=== PATIENT | male | born 1960 | race Caucasian/White ===

== ENCOUNTER 2019-10-12 05:44 | Inpatient (IN) | payer MEDICARE, OTHER ==
[2019-10-03 11:50] LABS: PRE OP PROTIME 10.5 SECONDS (9.0-12.0)
[2019-10-03 12:53] LABS: ALBUMIN 3.9 G/DL (3.4-5.0); ALBUMIN/GLOBULIN RATIO 1.1 (1.1-1.5); ALKALINE PHOSPHATASE 105 IU/L (46-116); BLOOD UREA NITROGEN 14 MG/DL (7-18); BUN/CREATININE RATIO 14.6 (5.4-32.0); CALCIUM 9.9 MG/DL (8.5-10.1); CHLORIDE 107 MMOL/L (99-107); CREATININE 0.96 MG/DL (0.60-1.10); PRE OP ALT 52 U/L (30-65); PRE OP ANION GAP 7 (8-16); PRE OP AST 24 U/L (10-37); PRE OP BILIRUB, TOTAL 0.6 MG/DL (0.0-1.0); PRE OP GLUCOSE 104 MG/DL (70-104); PRE OP POTASSIUM 4.1 MMOL/L (3.4-5.1); PRE OP SODIUM 139 MMOL/L (135-145); TOTAL CARBON DIOXIDE 25.2 MMOL/L (24-32); TOTAL PROTEIN 7.5 G/DL (6.4-8.2); eGFR 80 ML/MIN
[~2019-10-12] VITALS: Ht 180.3 cm; Wt 110.2 kg
[2019-10-12] VITALS (15 sets, daily range): BP systolic 85–137; BP diastolic 50–87
[~2019-10-12 05:44] MED LIST: ALPR0.5T8 PO; PANT-47 PO; SILD100T PO; ZOLP10TA5 PO; cefazolin/dext.iso 2gm/100ml 100 ML IV ONE; famotidine 20mg tablet PO ONE; ringers solution, lacted 1,000 ML IV SCH; scopolamine 1.5mg patch.TD72 TD ONE; tranexamic acid inj. 1,130 MG in normal saline 100ml IV soln 100 ML IV ONE; vancomycin inj 1,500 MG in normal saline 300ml IV soln IV ONE
[2019-10-12] MEDS ORDERED: ketorolac trometh. 30mg/ml inj. ONE (06:45)
[2019-10-12] MEDS ORDERED: ROPIVAcaine 0.5% (5mg/ml) 30ml vial ONE ×2 (06:45→08:28)
[2019-10-12 06:46] LABS: BASOPHILS # (AUTO) 0.1 X10'3 (0-0.2); BASOPHILS % (AUTO) 1.8 % (0-1); EOSINOPHILS # (AUTO) 0.2 X10'3 (0-0.9); EOSINOPHILS % (AUTO) 3.7 % (0-6); HEMATOCRIT 45.3 % (42.0-52.0); HEMOGLOBIN 15.3 g/dl (14.0-17.9); LYMPHOCYTES # (AUTO) 2.3 X10'3 (1.1-4.8); LYMPHOCYTES % (AUTO) 36.6 % (21-51); MEAN CORPUSCULAR HEMOGLOBIN 33.2 PG (27.0-31.0); MEAN CORPUSCULAR HGB CONC 33.9 g/dL (33.0-36.5); MEAN CORPUSCULAR VOLUME 98.1 FL (78-98); MEAN PLATELET VOLUME 8.1 FL (7.4-10.4); MONOCYTES # (AUTO) 0.7 X10'3 (0-0.9); MONOCYTES % (AUTO) 10.9 % (2-12); PLATELET COUNT 253 X10'3 (140-440); RED BLOOD COUNT 4.62 X10'6 (4.70-6.10); RED CELL DISTRIBUTION WIDTH 13.7 % (11.5-14.5); WHITE BLOOD COUNT 6.4 X10'3 (4.5-11.0)
[2019-10-12] MEDS ORDERED: ringers solution, lacted 1,000 ML IV SCH (08:17)
[2019-10-12] MEDS ORDERED: ondansetron/PF 4mg/2ml inj IV PRN ×3 (08:20→11:35)
[2019-10-12] MEDS ORDERED: morphine 4 MG/ML inj SYRINge IV PRN ×2 (08:20)
[2019-10-12] MEDS ORDERED: proMETHazine 25mg rectal suppository RC PRN ×2 (08:20)
[2019-10-12] MEDS ORDERED: hydrALAZINE 20mg/ml inj. IV PRN (08:20)
[2019-10-12] MEDS ORDERED: labetalol 20mg/4ml (5mg/ml) syringe IV PRN (08:20)
[2019-10-12] MEDS ORDERED: ROPIVAcaine 0.2% (10 MG/5 ML) BOLUS INJECTION INTERSCALE PRN ×2 (08:20→12:05)
[2019-10-12] MEDS ORDERED: proCHLORperazine 10 MG/2 ml inj IV PRN (08:20)
[2019-10-12] MEDS ORDERED: fentaNYL/PF 50MCG/1 ML 2ML syringe IV PRN ×2 (08:20)
[2019-10-12] MEDS ORDERED: fentaNYL/PF 50MCG/1 ML 2ML syringe ONE (08:24)
[2019-10-12] MEDS ORDERED: midazolam 2 mg/2 ml injection ONE (08:25)
[2019-10-12] MEDS ORDERED: dexamethasone sod phosphate 4mg/ml inj. ONE (08:28)
[2019-10-12] MEDS ORDERED: LIDOcaine 2% (20mg/ml) 5ml vial ONE (08:28)
[2019-10-12] MEDS ORDERED: propofol inj 20 ML IV ONE (08:28)
[2019-10-12] MEDS ORDERED: ondansetron/PF 4mg/2ml inj ONE (08:28)
[2019-10-12] MEDS ORDERED: acetaminophen 1,000mg/100ml IV 100 ML IV ONE (08:28)
[2019-10-12] MEDS ORDERED: sevoflurane 250ml liquid IH ONE (09:00)
[2019-10-12] MEDS ORDERED: succinylcholine 20mg/ml inj IV ONE (09:50)
[2019-10-12] MEDS ORDERED: tranexamic acid inj. 1,130 MG in normal saline 100ml IV soln 100 ML IV ONE ×2 (10:00→15:35)
[2019-10-12] MEDS ORDERED: ePHEDrine 50MG/ML INJ. ONE (10:37)
[2019-10-12] MEDS ORDERED: atropine 0.4 mg/ml 20ml vial ONE (10:39)
[2019-10-12] MEDS ORDERED: magnesium hydroxide 30ml (MOM) UD suspension PO PRN (11:35)
[2019-10-12] MEDS ORDERED: zolpidem 5mg tablet PO SCH (11:35)
[2019-10-12] MEDS ORDERED: non-formulary drug (Sildenafil Citrate* (Viagra*) 1 TAB) PO PRN (11:35)
[2019-10-12] MEDS ORDERED: HYDROmorphone inj. 0.5 MG/0.5 ML DISP.SYRIN IV PRN (11:35)
[2019-10-12] MEDS ORDERED: acetaminophen 325mg tablet PO PRN (11:35)
[2019-10-12] MEDS ORDERED: bisacodyl 10mg suppository rectal RC PRN (11:35)
[2019-10-12] MEDS ORDERED: oxyCODONE IR 5mg (immed. release) tablet PO PRN (11:35)
[2019-10-12] MEDS ORDERED: diphenhydrAMINE 25mg capsule PO PRN ×2 (11:35)
[2019-10-12] MEDS ORDERED: HYDROmorphone 1 mg/ml syringe IV PRN (11:35)
--- NOTE | 2019-10-12 11:35 | NUR ---
Received from OR via ORTHO BED WITH [facility] , accompanied by Anesthesiologist JOSEFA and report given by Anesthesiolgist. PATIENT WITH SLING TO RIGHT UE WITH POWDER PACK PRESENT. NO DRAINAGE PRESENT TO RIGHT UE DRESSING , NERVE BLOCK CATHETER PRESENT TO LEFT OF NECK. + RADIAL PULSE PRESENT AND SLING IS ON, PLACED PILLOW UNDER ELBOW TO PROTECT ULNAR NERVE. PATIENT WITH SCDS DONNED AND VSS AT THIS TIME. GLASSES PLACED ON TRAPEZE.VSS Addendum: 10/12/19 at 1156 by Last Johnson RN, RN Amended: Links added.
[2019-10-12] MEDS ORDERED: ROPIVAcaine 0.2%/PF PUMP/bolus 550 ML INTERSCALE SCH (12:01)
--- NOTE | 2019-10-12 12:25 | NUR ---
ALL CRITERIA FOR TRANSFER TO THE FLOOR HAS BEEN ACHIEVED. VSS. BED LOW, CALL LIGHT AND VS. SET IN PLACE. RN PRESENT TO ACCEPT CARE. PATIENT RESTING COMFORTABLY IN BED. BELONGINGS SENT WITH PATIENT. DRESSINGS CDI. REINA DELAROSA AND PATIENT PRESENT. 2 BAGS OF BELONGINGS SENT AND A PAIR OF GLASSES. Addendum: 10/12/19 at 1237 by Last Aquino - REINA HUANG Amended: Links added.
[2019-10-12] MEDS ORDERED: ALPRAZolam 0.5mg tablet PO PRN ×2 (13:05→20:15)
[2019-10-12] MEDS: acetaminophen 325mg tablet PO SCH ×2 (15:59→20:00)
[2019-10-12] MEDS: ceFAZolin 1GM/D5W- ADD-VANTAGE 50 ML IV SCH ×2 (16:00→23:42)
[2019-10-12] MEDS: potassium cl 20mEq in 1/2 NS 1,000 ML IV SCH ×3 (16:01→23:42)
[2019-10-12] MEDS ORDERED: vancomycin/NS 1 GM ADD-VANTAGE 250 ML IV SCH (20:00)
[2019-10-12] MEDS ORDERED: pantoprazole 40mg Tablet.DR PO SCH (21:00)
[2019-10-12] MEDS ORDERED: sennosides 8.6mg tablet PO SCH (21:00)
[2019-10-13 02:00] VITALS: BP_SYST 130; BP_SYST 92; BP_DIAS 53; BP_DIAS 76
[2019-10-13] MEDS: acetaminophen 325mg tablet PO SCH ×2 (02:00→07:57)
[2019-10-13 06:00] VITALS: BP 106/47
[2019-10-13 06:30] LABS: ANION GAP 8 (8-16); CHLORIDE 106 MMOL/L (99-107); POTASSIUM 4.2 MMOL/L (3.5-5.1); SODIUM 139 MMOL/L (135-145); TOTAL CARBON DIOXIDE 24.9 MMOL/L (24-32)
[2019-10-13 06:49] LABS: BASOPHILS % (AUTO) 0.3 % (0-1); EOSINOPHILS % (AUTO) 0.1 % (0-6); HEMATOCRIT 39.3 % (42.0-52.0); HEMOGLOBIN 13.5 g/dl (14.0-17.9); LYMPHOCYTES # (AUTO) 1.4 X10'3 (1.1-4.8); LYMPHOCYTES % (AUTO) 9.5 % (21-51); MEAN CORPUSCULAR HEMOGLOBIN 33.5 PG (27.0-31.0); MEAN CORPUSCULAR HGB CONC 34.4 g/dL (33.0-36.5); MEAN CORPUSCULAR VOLUME 97.5 FL (78-98); MEAN PLATELET VOLUME 8.4 FL (7.4-10.4); MONOCYTES # (AUTO) 0.7 X10'3 (0-0.9); MONOCYTES % (AUTO) 4.9 % (2-12); NEUTROPHILS # (AUTO) 12.6 X10'3 (1.8-7.7); NEUTROPHILS % (AUTO) 85.2 % (42-75); PLATELET COUNT 254 X10'3 (140-440); RED BLOOD COUNT 4.04 X10'6 (4.70-6.10); RED CELL DISTRIBUTION WIDTH 13.7 % (11.5-14.5); WHITE BLOOD COUNT 14.7 X10'3 (4.5-11.0)
[2019-10-13] MEDS ORDERED: mag hydrox/Alum hydrox/simeth 30ml oral suspension PO PRN (07:20)
[2019-10-13] MEDS ORDERED: aspirin 325mg tablet PO SCH (08:30)
[2019-10-13 09:52] VITALS: BP 112/52
[2019-10-13] MEDS: oxyCODONE IR 5mg (immed. release) tablet PO PRN ×2 (10:22→12:09)
[2019-10-13] MEDS: potassium cl 20mEq in 1/2 NS 1,000 ML IV SCH (11:34)
[2019-10-14] MEDS ORDERED: acetaminophen 325mg tablet PO PRN (11:35)
== END 2019-10-13 12:30 | disposition home or self-care (01) | DRG 483 ==
LOC: PAS IN 05:44 → EDSTATUS 09:45 → ORTHO 4S 12:25
PROVIDERS: ADMIT Orthopaedic Surgery; ATTEND Orthopaedic Surgery
PROC: 0LS30ZZ Reposition Right Upper Arm Tendon, Open Approach (ICD-10-PCS; 2019-10-12)
PROC: 3E0T3BZ Introduction of Anesthetic Agent into Peripheral Nerves and Plexi, Percutaneous Approach (ICD-10-PCS; 2019-10-12)
PROC: 0RRJ0JZ Replacement of Right Shoulder Joint with Synthetic Substitute, Open Approach (ICD-10-PCS; principal; 2019-10-12 09:00)
DX: M19.011 Primary osteoarthritis, right shoulder (principal); D62 Acute posthemorrhagic anemia; M75.111 Incomplete rotator cuff tear or rupture of right shoulder, not specified as traumatic; M75.31 Calcific tendinitis of right shoulder; G89.29 Other chronic pain; G47.33 Obstructive sleep apnea (adult) (pediatric); M65.811 Other synovitis and tenosynovitis, right shoulder; F41.9 Anxiety disorder, unspecified; K21.9 Gastro-esophageal reflux disease without esophagitis; E66.9 Obesity, unspecified; Z68.33 Body mass index [BMI] 33.0-33.9, adult; Z79.899 Other long term (current) drug therapy
CPT/HCPCS: 36415; 80051; 80053; 82948; 85025; 85610; 85730; 87081; 93005; 97112; 97116; 97161; 97530; A4565; A4618; A7000; C1713; C1776; G0378; J0131; J0330; J0461; J0690; J1100; J1885; J2001; J2250; J2405; J2704; J2795; J3010; J3370; J3480; J7120

== ENCOUNTER 2020-04-15 01:46 | Emergency (ER) | payer OTHER, MEDICARE ==
[~2020-04-15] VITALS: Ht 180.3 cm; Wt 113.6 kg
[~2020-04-15 01:46] MED LIST changes: -cefazolin/dext.iso 2gm/100ml 100 ML IV ONE; -famotidine 20mg tablet PO ONE; -ringers solution, lacted 1,000 ML IV SCH; -scopolamine 1.5mg patch.TD72 TD ONE; -tranexamic acid inj. 1,130 MG in normal saline 100ml IV soln 100 ML IV ONE; -vancomycin inj 1,500 MG in normal saline 300ml IV soln IV ONE
[2020-04-15 01:55] VITALS: BP 144/86
[2020-04-15] MEDS ORDERED: normal saline 1000ML IV soln IVB ONE (02:00)
[2020-04-15] MEDS ORDERED: morphine 4 MG/ML inj SYRINge IV PRN (02:00)
[2020-04-15] MEDS ORDERED: ondansetron/PF 4mg/2ml inj IV ONE (02:00)
--- NOTE | 2020-04-15 02:08 | NUR ---
PATIENT ACCESS DIRECTOR HER FOR CT VIA WHEEL CHAIR
[2020-04-15 02:14] LABS: BASOPHILS # (AUTO) 0.1 X10'3 (0-0.2); BASOPHILS % (AUTO) 0.6 % (0-1); EOSINOPHILS # (AUTO) 0.2 X10'3 (0-0.9); EOSINOPHILS % (AUTO) 2.3 % (0-6); HEMATOCRIT 45.8 % (42.0-52.0); HEMOGLOBIN 15.2 g/dl (14.0-17.9); LYMPHOCYTES # (AUTO) 2.2 X10'3 (1.1-4.8); LYMPHOCYTES % (AUTO) 26.2 % (21-51); MEAN CORPUSCULAR HEMOGLOBIN 32.2 PG (27.0-31.0); MEAN CORPUSCULAR HGB CONC 33.2 g/dL (33.0-36.5); MEAN PLATELET VOLUME 7.9 FL (7.4-10.4); MONOCYTES # (AUTO) 0.7 X10'3 (0-0.9); MONOCYTES % (AUTO) 8.7 % (2-12); NEUTROPHILS # (AUTO) 5.1 X10'3 (1.8-7.7); NEUTROPHILS % (AUTO) 62.2 % (42-75); PLATELET COUNT 274 X10'3 (140-440); RED BLOOD COUNT 4.72 X10'6 (4.70-6.10); RED CELL DISTRIBUTION WIDTH 13.5 % (11.5-14.5); WHITE BLOOD COUNT 8.2 X10'3 (4.5-11.0)
--- NOTE | 2020-04-15 02:20 | NUR ---
PT BACK FROM CT
[2020-04-15] MEDS ORDERED: ketorolac trometh. 30mg/ml inj. IV ONE (02:45)
[2020-04-15 02:48] LABS: ALANINE AMINOTRANSFERASE 52 U/L (12-78); ALBUMIN 3.8 G/DL (3.4-5.0); ALBUMIN/GLOBULIN RATIO 1.1 (1.1-1.5); ALKALINE PHOSPHATASE 95 IU/L (46-116); ANION GAP 9 (8-16); ASPARTATE AMINO TRANSFERASE 26 U/L (10-37); BILIRUBIN,TOTAL 0.5 MG/DL (0.1-1.0); BLOOD UREA NITROGEN 17 MG/DL (7-18); BUN/CREATININE RATIO 15.3 (5.4-32.0); CALCIUM 9.4 MG/DL (8.5-10.1); CHLORIDE 105 MMOL/L (99-107); CREATININE 1.11 MG/DL (0.60-1.10); GLUCOSE 105 MG/DL (70-104); LIPASE 143 U/L (73-393); SODIUM 140 MMOL/L (135-145); TOTAL CARBON DIOXIDE 25.8 MMOL/L (24-32); TOTAL PROTEIN 7.4 G/DL (6.4-8.2); eGFR 67 ML/MIN
[2020-04-15] MEDS ORDERED: IBUP-1984 PO (03:07)
[2020-04-15] MEDS ORDERED: HYDR-4384 PO (03:07)
[2020-04-15] MEDS ORDERED: FLO0.4C PO (03:07)
[2020-04-15 03:10] LABS: CLARITY,URINE CLEAR (Clear); COLOR,URINE YELLOW (Yellow); GLUCOSE, URINE NEGATIVE (Neg); KETONES,URINE NEGATIVE (Neg); LEUKOCYTE ESTERASE ,URINE NEGATIVE (Neg); NITRITES, URINE NEGATIVE (Neg); OCCULT BLOOD,URINE LARGE (Neg); PROTEIN,URINE NEGATIVE (Neg); UA COLLECTION TYPE URINAL
[2020-04-15 03:15] LABS: BACTERIA,URINE FEW /HPF (Neg); SQUAMOUS EPITHELIAL CELL,UR FEW /LPF (FEW); WBC,URINE 0-4 /HPF (0-4)
== END 2020-04-15 03:45 | disposition home or self-care (01) ==
LOC: ER 01:46
DX: N20.0 Calculus of kidney (principal); R30.9 Painful micturition, unspecified; M54.89 Other dorsalgia; E78.00 Pure hypercholesterolemia, unspecified; K21.9 Gastro-esophageal reflux disease without esophagitis; G89.29 Other chronic pain; F41.9 Anxiety disorder, unspecified; Z86.73 Personal history of transient ischemic attack (TIA), and cerebral infarction without residual deficits; Z98.890 Other specified postprocedural states; Z72.89 Other problems related to lifestyle; Z79.899 Other long term (current) drug therapy
CPT/HCPCS: 36415; 74176; 80053; 81001; 83690; 85025; 96361; 96374; 96375; 99284; J1885; J2405; J7030

== ENCOUNTER 2021-05-18 04:14 | Emergency (ER) | payer OTHER, MEDICARE ==
[~2021-05-18] VITALS: Ht 180.3 cm; Wt 109.1 kg
[2021-05-18] MEDS ORDERED: ondansetron/PF 4mg/2ml inj IV ONE (04:35)
[2021-05-18] MEDS ORDERED: normal saline 1000ml 1,000 ML IV ONE (04:35)
[2021-05-18] MEDS ORDERED: morphine 4 MG/ML inj SYRINge IV ONE (04:35)
[2021-05-18 04:45] LABS: BASOPHILS % (AUTO) 0.6 % (0-1); EOSINOPHILS # (AUTO) 0.2 X10'3 (0-0.9); EOSINOPHILS % (AUTO) 3.6 % (0-6); HEMATOCRIT 44.3 % (42.0-52.0); HEMOGLOBIN 14.6 g/dl (14.0-17.9); LYMPHOCYTES % (AUTO) 30.5 % (21-51); MEAN CORPUSCULAR HEMOGLOBIN 32.2 PG (27.0-31.0); MEAN CORPUSCULAR VOLUME 97.5 FL (78-98); MEAN PLATELET VOLUME 7.9 FL (7.4-10.4); MONOCYTES # (AUTO) 0.8 X10'3 (0-0.9); MONOCYTES % (AUTO) 11.6 % (2-12); NEUTROPHILS # (AUTO) 3.5 X10'3 (1.8-7.7); NEUTROPHILS % (AUTO) 53.7 % (42-75); PLATELET COUNT 258 X10'3 (140-440); RED BLOOD COUNT 4.55 X10'6 (4.70-6.10); RED CELL DISTRIBUTION WIDTH 14.1 % (11.5-14.5); WHITE BLOOD COUNT 6.6 X10'3 (4.5-11.0)
[2021-05-18] MEDS ORDERED: ketorolac trometh. 30mg/ml inj. IV ONE (04:45)
[2021-05-18 05:04] LABS: ALANINE AMINOTRANSFERASE 44 U/L (12-78); ALBUMIN 3.8 G/DL (3.4-5.0); ALBUMIN/GLOBULIN RATIO 1.1 (1.1-1.5); ALKALINE PHOSPHATASE 121 IU/L (46-116); ANION GAP 9 (8-16); ASPARTATE AMINO TRANSFERASE 25 U/L (10-37); BILIRUBIN,TOTAL 0.2 MG/DL (0.1-1.0); BLOOD UREA NITROGEN 21 MG/DL (7-18); BUN/CREATININE RATIO 21.2 (5.4-32.0); CALCIUM 9.7 MG/DL (8.5-10.1); CHLORIDE 108 MMOL/L (99-107); CREATININE 0.99 MG/DL (0.60-1.10); GLUCOSE 103 MG/DL (70-104); LIPASE 93 U/L (73-393); SODIUM 144 MMOL/L (135-145); TOTAL CARBON DIOXIDE 26.6 MMOL/L (24-32); TOTAL PROTEIN 7.3 G/DL (6.4-8.2); eGFR 77 ML/MIN
--- NOTE | 2021-05-18 05:38 | NUR ---
VANESA COLLECTED. PT WITH 2 OUT OF 10 PAIN FROM THE TORADOL IV [address] CASTELLANOS UPDATED.
[2021-05-18 05:50] LABS: UA COLLECTION TYPE URINAL
[2021-05-18 05:51] LABS: CLARITY,URINE SLIGHTLY CLOUDY (Clear); COLOR,URINE YELLOW (Yellow)
[2021-05-18 05:52] LABS: GLUCOSE, URINE NEGATIVE (Neg); KETONES,URINE TRACE mg/dl (Neg); LEUKOCYTE ESTERASE ,URINE NEGATIVE (Neg); NITRITES, URINE NEGATIVE (Neg); OCCULT BLOOD,URINE LARGE (Neg); PROTEIN,URINE NEGATIVE (Neg); UROBILINOGEN,URINE 0.2 E.U/dL (0.2-1.0)
[2021-05-18 05:57] LABS: BACTERIA,URINE NONE SEEN /HPF (Neg); CAL OXALATE CRYSTALS FEW /HPF (NEGATIVE); RBC,URINE 20-50 /HPF (0-2); SQUAMOUS EPITHELIAL CELL,UR FEW /LPF (FEW); WBC,URINE NONE SEEN /HPF (0-4)
[2021-05-18] MEDS ORDERED: FLO0.4C PO (07:10)
[2021-05-18] MEDS ORDERED: ONDA4TAB12 PO (07:10)
[2021-05-18 08:08] VITALS: BP 132/84
== END 2021-05-18 08:12 | disposition home or self-care (01) ==
LOC: ER 04:15
DX: N20.0 Calculus of kidney (principal); E78.00 Pure hypercholesterolemia, unspecified; K21.9 Gastro-esophageal reflux disease without esophagitis; Z98.890 Other specified postprocedural states; Z72.89 Other problems related to lifestyle; Z79.899 Other long term (current) drug therapy; Z87.442 Personal history of urinary calculi
CPT/HCPCS: 36415; 74176; 80053; 81001; 83690; 85025; 96361; 96374; 96375; 99284; J1885; J2405; J7030

== ENCOUNTER 2021-05-26 02:16 | Emergency (ER) | payer OTHER, MEDICARE ==
[~2021-05-26] VITALS: Ht 180.3 cm; Wt 111.4 kg
[~2021-05-26 02:16] MED LIST changes: +FLO0.4C PO; +ONDA4TAB12 PO
[2021-05-26] MEDS ORDERED: ondansetron 4mg rapidly disintigrating tab PO ONE (03:05)
[2021-05-26] MEDS ORDERED: ketorolac trometh inj. 60 MG/2 ML VIAL IM ONE (03:05)
--- NOTE | 2021-05-26 03:30 | NUR ---
PT C/O FLANK PN WITH HX OF KIDNEY STONES; PT IN NAD WITH VSS; WILL CTM
[2021-05-26] MEDS: morphine 4 MG/ML inj SYRINge IM ONE ×2 (03:33→03:37)
[2021-05-26 03:34] LABS: COLOR,URINE YELLOW (Yellow); UA COLLECTION TYPE CLN CATCH MIDSTREAM
[2021-05-26 03:35] LABS: CLARITY,URINE CLEAR (Clear); PROTEIN,URINE 30 mg/dl (Neg)
[2021-05-26 03:36] LABS: GLUCOSE, URINE NEGATIVE (Neg); KETONES,URINE NEGATIVE (Neg); LEUKOCYTE ESTERASE ,URINE NEGATIVE (Neg); NITRITES, URINE NEGATIVE (Neg); OCCULT BLOOD,URINE LARGE (Neg); UROBILINOGEN,URINE 0.2 E.U/dL (0.2-1.0)
[2021-05-26 03:42] LABS: BACTERIA,URINE NONE SEEN /HPF (Neg); CAL OXALATE CRYSTALS 2+ /HPF (NEGATIVE); MUCUS STRANDS MODERATE /LPF (Neg); RBC,URINE 50-100 /HPF (0-2); SQUAMOUS EPITHELIAL CELL,UR NONE SEEN /LPF (FEW)
[2021-05-26 04:07] LABS: BASOPHILS # (AUTO) 0.1 X10'3 (0-0.2); BASOPHILS % (AUTO) 0.4 % (0-1); EOSINOPHILS # (AUTO) 0.1 X10'3 (0-0.9); EOSINOPHILS % (AUTO) 0.7 % (0-6); HEMATOCRIT 44.2 % (42.0-52.0); HEMOGLOBIN 15.4 g/dl (14.0-17.9); LYMPHOCYTES # (AUTO) 1.7 X10'3 (1.1-4.8); LYMPHOCYTES % (AUTO) 13.7 % (21-51); MEAN CORPUSCULAR HGB CONC 34.9 g/dL (33.0-36.5); MEAN CORPUSCULAR VOLUME 94.6 FL (78-98); MEAN PLATELET VOLUME 7.7 FL (7.4-10.4); MONOCYTES # (AUTO) 1.1 X10'3 (0-0.9); NEUTROPHILS # (AUTO) 9.5 X10'3 (1.8-7.7); NEUTROPHILS % (AUTO) 76.2 % (42-75); PLATELET COUNT 284 X10'3 (140-440); RED BLOOD COUNT 4.67 X10'6 (4.70-6.10); RED CELL DISTRIBUTION WIDTH 13.7 % (11.5-14.5); WHITE BLOOD COUNT 12.5 X10'3 (4.5-11.0)
[2021-05-26] MEDS ORDERED: HYDR-3965 PO (04:08)
[2021-05-26 04:16] LABS: ALBUMIN 4.1 G/DL (3.4-5.0); ANION GAP 8 (8-16); BLOOD UREA NITROGEN 22 MG/DL (7-18); BUN/CREATININE RATIO 17.1 (5.4-32.0); CALCIUM 10.4 MG/DL (8.5-10.1); CHLORIDE 105 MMOL/L (99-107); CREATININE 1.29 MG/DL (0.60-1.10); GLUCOSE 113 MG/DL (70-104); POTASSIUM 4.2 MMOL/L (3.5-5.1); SODIUM 141 MMOL/L (135-145); TOTAL CARBON DIOXIDE 27.6 MMOL/L (24-32); eGFR 56 ML/MIN
[2021-05-26 04:20] VITALS: BP 121/68
== END 2021-05-26 04:22 | disposition home or self-care (01) ==
LOC: ER 02:17
DX: N20.0 Calculus of kidney (principal); R10.84 Generalized abdominal pain; E78.00 Pure hypercholesterolemia, unspecified; K21.9 Gastro-esophageal reflux disease without esophagitis; G89.29 Other chronic pain; F41.9 Anxiety disorder, unspecified; Z86.73 Personal history of transient ischemic attack (TIA), and cerebral infarction without residual deficits; Z72.89 Other problems related to lifestyle; Z98.890 Other specified postprocedural states; Z79.899 Other long term (current) drug therapy
CPT/HCPCS: 36415; 80048; 81001; 85025; 96372; 99283; J1885; J2270

== ENCOUNTER 2021-06-16 00:11 | Emergency (ER) | payer OTHER, MEDICARE ==
[~2021-06-16] VITALS: Ht 180.3 cm; Wt 109.1 kg
[~2021-06-16 00:11] MED LIST changes: +HYDR-3965 PO
[2021-06-16] MEDS ORDERED: ketorolac trometh. 30mg/ml inj. IV ONE (00:55)
[2021-06-16] MEDS ORDERED: ondansetron/PF 4mg/2ml inj IV ONE (00:55)
[2021-06-16 01:20] LABS: BASOPHILS # (AUTO) 0.1 X10'3 (0-0.2); BASOPHILS % (AUTO) 0.7 % (0-1); EOSINOPHILS # (AUTO) 0.3 X10'3 (0-0.9); EOSINOPHILS % (AUTO) 3.7 % (0-6); HEMOGLOBIN 14.6 g/dl (14.0-17.9); LYMPHOCYTES # (AUTO) 2.2 X10'3 (1.1-4.8); LYMPHOCYTES % (AUTO) 26.3 % (21-51); MEAN CORPUSCULAR HEMOGLOBIN 32.6 PG (27.0-31.0); MEAN CORPUSCULAR HGB CONC 33.9 g/dL (33.0-36.5); MEAN CORPUSCULAR VOLUME 96.3 FL (78-98); MEAN PLATELET VOLUME 7.5 FL (7.4-10.4); MONOCYTES # (AUTO) 0.9 X10'3 (0-0.9); MONOCYTES % (AUTO) 10.7 % (2-12); NEUTROPHILS # (AUTO) 4.9 X10'3 (1.8-7.7); NEUTROPHILS % (AUTO) 58.6 % (42-75); PLATELET COUNT 278 X10'3 (140-440); RED BLOOD COUNT 4.47 X10'6 (4.70-6.10); RED CELL DISTRIBUTION WIDTH 13.8 % (11.5-14.5); WHITE BLOOD COUNT 8.4 X10'3 (4.5-11.0)
[2021-06-16 01:34] LABS: ALANINE AMINOTRANSFERASE 42 U/L (12-78); ALBUMIN 3.6 G/DL (3.4-5.0); ALBUMIN/GLOBULIN RATIO 0.9 (1.1-1.5); ALKALINE PHOSPHATASE 122 IU/L (46-116); ANION GAP 10 (8-16); ASPARTATE AMINO TRANSFERASE 23 U/L (10-37); BILIRUBIN,TOTAL 0.3 MG/DL (0.1-1.0); BLOOD UREA NITROGEN 22 MG/DL (7-18); BUN/CREATININE RATIO 21.8 (5.4-32.0); CALCIUM 9.5 MG/DL (8.5-10.1); CHLORIDE 107 MMOL/L (99-107); CREATININE 1.01 MG/DL (0.60-1.10); GLUCOSE 99 MG/DL (70-104); LIPASE 130 U/L (73-393); POTASSIUM 3.9 MMOL/L (3.5-5.1); SODIUM 142 MMOL/L (135-145); TOTAL CARBON DIOXIDE 25.2 MMOL/L (24-32); TOTAL PROTEIN 7.4 G/DL (6.4-8.2); eGFR 75 ML/MIN
[2021-06-16 01:47] LABS: CLARITY,URINE SLIGHTLY CLOUDY (Clear); COLOR,URINE YELLOW (Yellow); UA COLLECTION TYPE URINAL
[2021-06-16 01:48] LABS: GLUCOSE, URINE NEGATIVE (Neg); KETONES,URINE TRACE mg/dl (Neg); LEUKOCYTE ESTERASE ,URINE NEGATIVE (Neg); NITRITES, URINE NEGATIVE (Neg); OCCULT BLOOD,URINE LARGE (Neg); PROTEIN,URINE NEGATIVE (Neg); UROBILINOGEN,URINE 0.2 E.U/dL (0.2-1.0)
[2021-06-16 01:49] LABS: BACTERIA,URINE NONE SEEN /HPF (Neg); RBC,URINE 20-50 /HPF (0-2); SQUAMOUS EPITHELIAL CELL,UR FEW /LPF (FEW); WBC,URINE NONE SEEN /HPF (0-4)
[2021-06-16] MEDS ORDERED: morphine 4 MG/ML inj SYRINge IV ONE (02:25)
[2021-06-16] MEDS ORDERED: HYDROcodone/acetaminophen 10/325mg tab PO ONE (02:25)
[2021-06-16] MEDS: morphine 4 MG/ML inj SYRINge IV PRN ×2 (03:46→04:43)
[2021-06-16] MEDS ORDERED: normal saline 1000ML IV soln IVB ONE (04:35)
[2021-06-16] MEDS ORDERED: HYDR-3972 PO (05:04)
[2021-06-16] MEDS ORDERED: ONDA4TAB6 PO (05:04)
[2021-06-16 05:44] VITALS: BP 115/62
== END 2021-06-16 05:50 | disposition home or self-care (01) ==
LOC: ER 00:11
DX: N20.1 Calculus of ureter (principal); E78.00 Pure hypercholesterolemia, unspecified; K21.9 Gastro-esophageal reflux disease without esophagitis; G89.29 Other chronic pain; Z87.442 Personal history of urinary calculi; Z72.89 Other problems related to lifestyle; Z98.890 Other specified postprocedural states; Z79.899 Other long term (current) drug therapy
CPT/HCPCS: 36415; 80053; 81001; 83690; 85025; 96361; 96374; 96375; 99284; J1885; J2405; J7030

== ENCOUNTER 2021-11-25 21:22 | Emergency (ER) | payer OTHER, MEDICARE ==
[~2021-11-25] VITALS: Ht 180.3 cm; Wt 111.4 kg
[~2021-11-25 21:22] MED LIST changes: -FLO0.4C PO; -HYDR-3965 PO; +ONDA4TAB6 PO
[2021-11-25 21:30] VITALS: BP 138/78
== END 2021-11-25 22:12 | disposition left against medical advice (07) ==
LOC: ER 21:23
DX: S61.214A Laceration without foreign body of right ring finger without damage to nail, initial encounter (principal); Z53.21 Procedure and treatment not carried out due to patient leaving prior to being seen by health care provider; W45.8XXA Other foreign body or object entering through skin, initial encounter; Y93.9 Activity, unspecified; Y92.9 Unspecified place or not applicable; Y99.9 Unspecified external cause status

== ENCOUNTER 2022-09-20 19:57 | Emergency (ER) | payer OTHER, MEDICARE ==
[~2022-09-20] VITALS: Ht 348 cm; Wt 111.4 kg
[2022-09-20 20:22] LABS: BASOPHILS # (AUTO) 0.1 X10'3 (0-0.2); BASOPHILS % (AUTO) 0.7 % (0-1); EOSINOPHILS # (AUTO) 0.2 X10'3 (0-0.9); EOSINOPHILS % (AUTO) 2.2 % (0-6); HEMATOCRIT 51.5 % (42.0-52.0); HEMOGLOBIN 16.8 g/dl (14.0-17.9); LYMPHOCYTES # (AUTO) 2.1 X10'3 (1.1-4.8); LYMPHOCYTES % (AUTO) 27.5 % (21-51); MEAN CORPUSCULAR HEMOGLOBIN 31.8 PG (27.0-31.0); MEAN CORPUSCULAR HGB CONC 32.7 g/dL (33.0-36.5); MEAN CORPUSCULAR VOLUME 97.4 FL (78-98); MEAN PLATELET VOLUME 7.7 FL (7.4-10.4); MONOCYTES # (AUTO) 0.8 X10'3 (0-0.9); MONOCYTES % (AUTO) 10.5 % (2-12); NEUTROPHILS # (AUTO) 4.6 X10'3 (1.8-7.7); NEUTROPHILS % (AUTO) 59.1 % (42-75); PLATELET COUNT 268 X10'3 (140-440); RED BLOOD COUNT 5.29 X10'6 (4.70-6.10); RED CELL DISTRIBUTION WIDTH 14.4 % (11.5-14.5); WHITE BLOOD COUNT 7.8 X10'3 (4.5-11.0)
[2022-09-20 20:42] LABS: ALANINE AMINOTRANSFERASE 44 U/L (12-78); ALBUMIN 4.1 G/DL (3.4-5.0); ALBUMIN/GLOBULIN RATIO 1.1 (1.1-1.5); ALKALINE PHOSPHATASE 97 IU/L (46-116); ANION GAP 9 (8-16); ASPARTATE AMINO TRANSFERASE 32 U/L (10-37); BILIRUBIN,TOTAL 0.8 MG/DL (0.1-1.0); BLOOD UREA NITROGEN 20 MG/DL (7-18); BUN/CREATININE RATIO 22.7 (5.4-32.0); CALCIUM 9.8 MG/DL (8.5-10.1); CHLORIDE 102 MMOL/L (99-107); CREATININE 0.88 MG/DL (0.60-1.10); GLUCOSE 94 MG/DL (70-104); MAGNESIUM 1.9 MG/DL (1.5-2.4); SODIUM 134 MMOL/L (135-145); TOTAL CARBON DIOXIDE 23.3 MMOL/L (24-32); TOTAL PROTEIN 7.8 G/DL (6.4-8.2); eGFR 87 ML/MIN
[2022-09-21 00:49] LABS: LIPASE 96 U/L (73-393)
[2022-09-21 01:05] LABS: CLARITY,URINE CLEAR (Clear); COLOR,URINE YELLOW (Yellow); GLUCOSE, URINE NEGATIVE (Neg); KETONES,URINE 40 mg/dl (Neg); LEUKOCYTE ESTERASE ,URINE NEGATIVE (Neg); NITRITES, URINE NEGATIVE (Neg); OCCULT BLOOD,URINE TRACE-INTACT (Neg); PH,URINE 5.5 (4.8-8.0); PROTEIN,URINE NEGATIVE (Neg); UROBILINOGEN,URINE 0.2 E.U/dL (0.2-1.0)
[2022-09-21 01:08] LABS: UA COLLECTION TYPE CLN CATCH MIDSTREAM
[2022-09-21 01:14] LABS: BACTERIA,URINE NONE SEEN /HPF (Neg); RBC,URINE 0-2 /HPF (0-2); SQUAMOUS EPITHELIAL CELL,UR NONE SEEN /LPF (FEW); WBC,URINE 0-4 /HPF (0-4)
[2022-09-21] MEDS ORDERED: aspirin 325mg tablet PO ONE (02:55)
[2022-09-21] MEDS ORDERED: ASPI81TA52 PO (02:55)
[2022-09-21 03:00] VITALS: BP 130/86
== END 2022-09-21 03:20 | disposition home or self-care (01) ==
LOC: ER 19:58
DX: I48.91 Unspecified atrial fibrillation (principal); Z20.822 Contact with and (suspected) exposure to COVID-19; E78.00 Pure hypercholesterolemia, unspecified; K21.9 Gastro-esophageal reflux disease without esophagitis; G89.29 Other chronic pain; F41.9 Anxiety disorder, unspecified; Z87.442 Personal history of urinary calculi; Z86.73 Personal history of transient ischemic attack (TIA), and cerebral infarction without residual deficits; Z72.89 Other problems related to lifestyle; Z98.890 Other specified postprocedural states; Z79.82 Long term (current) use of aspirin; Z79.899 Other long term (current) drug therapy
CPT/HCPCS: 36415; 71045; 80053; 81001; 83605; 83690; 83735; 83880; 84484; 85025; 87081; 87502; 87503; 87635; 87880; 93005; 99285; C9803

== ENCOUNTER 2022-10-22 10:34 | Outpatient (CLI) | payer MEDICARE, OTHER ==
[~2022-10-22] VITALS: Ht 180.3 cm; Wt 113.9 kg
[~2022-10-22 10:34] MED LIST changes: +ASPI81TA52 PO
[2022-10-22] MEDS ORDERED: ASPI-612 PO (11:19)
[2022-10-22 11:49] LABS: BASOPHILS # (AUTO) 0.1 X10'3 (0-0.2); BASOPHILS % (AUTO) 0.9 % (0-1); EOSINOPHILS # (AUTO) 0.3 X10'3 (0-0.9); EOSINOPHILS % (AUTO) 3.7 % (0-6); LYMPHOCYTES # (AUTO) 2.5 X10'3 (1.1-4.8); MEAN CORPUSCULAR HEMOGLOBIN 32.4 PG (27.0-31.0); MEAN CORPUSCULAR HGB CONC 33.2 g/dL (33.0-36.5); MEAN CORPUSCULAR VOLUME 97.6 FL (78-98); MEAN PLATELET VOLUME 8.1 FL (7.4-10.4); MONOCYTES # (AUTO) 0.6 X10'3 (0-0.9); MONOCYTES % (AUTO) 8.6 % (2-12); NEUTROPHILS # (AUTO) 3.8 X10'3 (1.8-7.7); NEUTROPHILS % (AUTO) 52.8 % (42-75); PRE OP HEMATOCRIT 47.6 % (42.0-52.0); PRE OP HEMOGLOBIN 15.8 g/dL (14.0-17.9); PRE OP PLATELET COUNT 247 X10'3 (140-440); RED BLOOD COUNT 4.88 X10'6 (4.70-6.10); RED CELL DISTRIBUTION WIDTH 15.3 % (11.5-14.5)
[2022-10-22 12:11] LABS: ALBUMIN 3.7 G/DL (3.4-5.0); ALKALINE PHOSPHATASE 99 IU/L (46-116); BLOOD UREA NITROGEN 15 MG/DL (7-18); BUN/CREATININE RATIO 14.3 (5.4-32.0); CALCIUM 9.7 MG/DL (8.5-10.1); CHLORIDE 105 MMOL/L (99-107); CREATININE 1.05 MG/DL (0.60-1.10); PRE OP ALT 34 U/L (30-65); PRE OP ANION GAP 8 (8-16); PRE OP AST 21 U/L (10-37); PRE OP BILIRUB, TOTAL 0.8 MG/DL (0.0-1.0); PRE OP GLUCOSE 131 MG/DL (70-104); PRE OP POTASSIUM 3.7 MMOL/L (3.4-5.1); PRE OP SODIUM 140 MMOL/L (135-145); TOTAL CARBON DIOXIDE 26.6 MMOL/L (24-32); TOTAL PROTEIN 7.3 G/DL (6.4-8.2); eGFR 71 ML/MIN
[2022-10-26] MEDS ORDERED: scopolamine 1mg/72 hr patch TD PRN (16:48)
[2022-10-28] MEDS ORDERED: ringers solution, lacted 1,000 ML IV SCH (05:00)
[2022-10-28] MEDS ORDERED: famotidine 20mg tablet PO ONE (05:30)
[2022-10-28] MEDS ORDERED: ceFAZolin inj. 2,000 MG in dextrose 5%-water 100 ML IV ONE (05:30)
[2022-11-02] MEDS ORDERED: ringers solution, lacted 1,000 ML IV SCH (05:00)
[2022-11-02] MEDS ORDERED: ceFAZolin inj. 2,000 MG in dextrose 5%-water 100 ML IV ONE (05:30)
[2022-11-02] MEDS ORDERED: famotidine 20mg tablet PO ONE (05:30)
[2022-11-02] MEDS ORDERED: scopolamine 1mg/72 hr patch TD ONE (05:30)
[2022-12-06] MEDS ORDERED: SILD50TA PO (15:50)
[2022-12-06] MEDS ORDERED: TEST200V33 IM (15:50)
[2022-12-06] MEDS ORDERED: ZOLP5TAB2 PO (15:50)
== END 2022-10-22 23:59 | disposition home or self-care (01) ==
LOC: LAB 10:34 → EDSTATUS 11-02 20:00
PROVIDERS: ATTEND Surgery
DX: Z01.818 Encounter for other preprocedural examination (principal); K40.90 Unilateral inguinal hernia, without obstruction or gangrene, not specified as recurrent
CPT/HCPCS: 36415; 80053; 85025; 93005; J0690; J7060; J7120

== ENCOUNTER 2022-11-07 00:23 | Emergency (ER) | payer OTHER, MEDICARE ==
[~2022-11-07] VITALS: Ht 180.3 cm; Wt 133.5 kg
[~2022-11-07 00:23] MED LIST changes: -ALPR0.5T8 PO; +ASPI-612 PO; -ASPI81TA52 PO; -ONDA4TAB12 PO; -ONDA4TAB6 PO; -SILD100T PO; -ZOLP10TA5 PO
[2022-11-07] MEDS ORDERED: morphine 4 MG/ML inj SYRINge IV ONE (01:15)
[2022-11-07] MEDS ORDERED: ondansetron/PF 4mg/2ml inj IM ONE (01:15)
[2022-11-07] MEDS ORDERED: ketorolac trometh. 30mg/ml inj. IV ONE (01:50)
[2022-11-07 01:54] LABS: BASOPHILS # (AUTO) 0.1 X10'3 (0-0.2); BASOPHILS % (AUTO) 0.6 % (0-1); EOSINOPHILS # (AUTO) 0.1 X10'3 (0-0.9); EOSINOPHILS % (AUTO) 0.6 % (0-6); HEMATOCRIT 51.5 % (42.0-52.0); HEMOGLOBIN 17.2 g/dl (14.0-17.9); LYMPHOCYTES # (AUTO) 1.8 X10'3 (1.1-4.8); LYMPHOCYTES % (AUTO) 13.5 % (21-51); MEAN CORPUSCULAR HEMOGLOBIN 32.7 PG (27.0-31.0); MEAN CORPUSCULAR HGB CONC 33.4 g/dL (33.0-36.5); MEAN CORPUSCULAR VOLUME 97.9 FL (78-98); MEAN PLATELET VOLUME 8.2 FL (7.4-10.4); MONOCYTES # (AUTO) 0.8 X10'3 (0-0.9); MONOCYTES % (AUTO) 6.1 % (2-12); NEUTROPHILS # (AUTO) 10.3 X10'3 (1.8-7.7); NEUTROPHILS % (AUTO) 79.2 % (42-75); PLATELET COUNT 258 X10'3 (140-440); RED BLOOD COUNT 5.26 X10'6 (4.70-6.10); RED CELL DISTRIBUTION WIDTH 15.3 % (11.5-14.5)
[2022-11-07 02:12] LABS: ALANINE AMINOTRANSFERASE 38 U/L (12-78); ALBUMIN 4.2 G/DL (3.4-5.0); ALBUMIN/GLOBULIN RATIO 1.1 (1.1-1.5); ALKALINE PHOSPHATASE 104 IU/L (46-116); ANION GAP 8 (8-16); ASPARTATE AMINO TRANSFERASE 29 U/L (10-37); BILIRUBIN,TOTAL 0.5 MG/DL (0.1-1.0); BLOOD UREA NITROGEN 23 MG/DL (7-18); BUN/CREATININE RATIO 19.2 (5.4-32.0); CALCIUM 10.5 MG/DL (8.5-10.1); CHLORIDE 104 MMOL/L (99-107); GLUCOSE 140 MG/DL (70-104); LIPASE 87 U/L (73-393); POTASSIUM 4.7 MMOL/L (3.5-5.1); SODIUM 138 MMOL/L (135-145); TOTAL CARBON DIOXIDE 25.7 MMOL/L (24-32); TOTAL PROTEIN 7.9 G/DL (6.4-8.2); eGFR 61 ML/MIN
[2022-11-07 03:11] LABS: ANISOCYTOSIS FEW; PLATELET ESTIMATE NORMAL; TOTAL CELLS COUNTED 100; TOXIC VACUOLATION 1+
[2022-11-07] MEDS ORDERED: ONDA4TAB12 PO (04:05)
[2022-11-07] MEDS ORDERED: IBUP-1984 PO (04:05)
[2022-11-07] MEDS ORDERED: FLO0.4C PO (04:05)
[2022-11-07] MEDS ORDERED: HYDR-3965 PO (04:06)
[2022-11-07] MEDS ORDERED: mag hydrox/Alum hydrox/simeth 30ml oral suspension PO ONE (05:00)
[2022-11-07 05:12] LABS: CLARITY,URINE SLIGHTLY CLOUDY (Clear); GLUCOSE, URINE NEGATIVE (Neg); KETONES,URINE 15 mg/dl (Neg); LEUKOCYTE ESTERASE ,URINE NEGATIVE (Neg); NITRITES, URINE NEGATIVE (Neg); OCCULT BLOOD,URINE LARGE (Neg); PH,URINE 5.5 (4.8-8.0); PROTEIN,URINE TRACE mg/dl (Neg); UROBILINOGEN,URINE 0.2 E.U/dL (0.2-1.0)
[2022-11-07 05:15] LABS: COLOR,URINE DARK YELLOW (Yellow); UA COLLECTION TYPE URINAL
[2022-11-07 05:18] LABS: BACTERIA,URINE FEW /HPF (Neg); MUCUS STRANDS MANY /LPF (Neg); RBC,URINE 50-100 /HPF (0-2); SQUAMOUS EPITHELIAL CELL,UR FEW /LPF (FEW); WBC,URINE 0-4 /HPF (0-4)
[2022-11-07 05:19] LABS: HYALINE CASTS 0-3 /LPF (NEGATIVE)
[2022-11-07 05:55] VITALS: BP 109/63
== END 2022-11-07 06:14 | disposition home or self-care (01) ==
LOC: ER 00:24
DX: N23 Unspecified renal colic (principal); E78.00 Pure hypercholesterolemia, unspecified; K21.9 Gastro-esophageal reflux disease without esophagitis; G89.29 Other chronic pain; M54.50 Low back pain, unspecified
CPT/HCPCS: 36415; 74176; 80053; 81001; 83690; 85007; 85025; 96372; 96374; 96375; 99285; J1885; J2270; J2405; J7030; A4615

== ENCOUNTER → 2022-12-09 | Day surgery (SDC) | payer OTHER ==
[2022-12-06 16:16] LABS: BASOPHILS % (AUTO) 0.6 % (0-1); EOSINOPHILS # (AUTO) 0.3 X10'3 (0-0.9); EOSINOPHILS % (AUTO) 4.4 % (0-6); LYMPHOCYTES # (AUTO) 2.2 X10'3 (1.1-4.8); LYMPHOCYTES % (AUTO) 35.5 % (21-51); MEAN CORPUSCULAR HEMOGLOBIN 33.3 PG (27.0-31.0); MEAN CORPUSCULAR HGB CONC 33.5 g/dL (33.0-36.5); MEAN CORPUSCULAR VOLUME 99.5 FL (78-98); MEAN PLATELET VOLUME 7.8 FL (7.4-10.4); MONOCYTES # (AUTO) 0.7 X10'3 (0-0.9); MONOCYTES % (AUTO) 11.3 % (2-12); NEUTROPHILS % (AUTO) 48.2 % (42-75); PRE OP HEMATOCRIT 47.2 % (42.0-52.0); PRE OP HEMOGLOBIN 15.8 g/dL (14.0-17.9); PRE OP PLATELET COUNT 228 X10'3 (140-440); RED BLOOD COUNT 4.75 X10'6 (4.70-6.10); RED CELL DISTRIBUTION WIDTH 14.5 % (11.5-14.5)
[2022-12-06 16:29] LABS: ALBUMIN 3.7 G/DL (3.4-5.0); ALKALINE PHOSPHATASE 92 IU/L (46-116); BLOOD UREA NITROGEN 14 MG/DL (7-18); BUN/CREATININE RATIO 14.3 (10.0-20.0); CALCIUM 10.1 MG/DL (8.5-10.1); CHLORIDE 105 MMOL/L (99-107); CREATININE 0.98 MG/DL (0.60-1.10); PRE OP ALT 30 U/L (30-65); PRE OP ANION GAP 7 (8-16); PRE OP AST 32 U/L (10-37); PRE OP BILIRUB, TOTAL 0.6 MG/DL (0.0-1.0); PRE OP GLUCOSE 91 MG/DL (70-104); PRE OP POTASSIUM 3.8 MMOL/L (3.4-5.1); PRE OP SODIUM 139 MMOL/L (135-145); TOTAL CARBON DIOXIDE 27.5 MMOL/L (24-32); TOTAL PROTEIN 7.4 G/DL (6.4-8.2); eGFR 77 ML/MIN
[2022-12-09] VITALS (7 sets, daily range): BP systolic 111–150; BP diastolic 60–92
[~2022-12-09] VITALS: Ht 180.3 cm; Wt 105.7 kg
[~2022-12-09] MED LIST changes: +BUPIVAcaine/PF 2.5 mg/ml (0.25%) 30ml vial IJ ONE; +BUPIVAcaine/PF 2.5 mg/ml (0.25%) 30ml vial ONE; +HYDR-3965 PO; +HYDROcodone/acetaminophen 5mg/325mg tablet PO PRN; +LIDOcaine 1% 30ml preserv. free vial IJ ONE; +LIDOcaine 1% 30ml preserv. free vial ONE; +LIDOcaine 1%/PF 5ML 10 MG/ML VIAL ONE; +SILD50TA PO; +TEST200V33 IM; +ZOLP5TAB2 PO; +acetaminophen 1,000mg/100ml IV 100 ML IV ONE; +cefazolin 2gm/D5W 100mL 100 ML IV ONE; +famotidine 20mg tablet PO ONE; +fentaNYL/PF 50MCG/1 ML 2ML syringe IV PRN; +fentaNYL/PF 50MCG/1 ML 2ML syringe ONE; +hydrALAZINE 20mg/ml inj. IV PRN; +labetalol 20mg/4ml (5mg/ml) syringe IV PRN; +midazolam 1 mg/ML 2ml injection ONE; +morphine 2 MG/ML inj. syringe IV PRN; +morphine 4 MG/ML inj SYRINge IV PRN; +ondansetron/PF 4mg/2ml inj IV PRN; +ondansetron/PF 4mg/2ml inj ONE; +propofol inj 20 ML IV ONE; +ringers solution, lacted 1,000 ML IV SCH; +rocuronium 10mg/ml inj IV ONE
--- NOTE | 2022-12-09 15:56 | NUR ---
Received from OR via , accompanied by Anesthesiologist CATINA AND OR NURSE and report given by Anesthesiolgist. PT IS DROWSY YET ABLE TO RESPOND TO VERBAL COMMANDS. PT WITH 4 LAP SITESWITH DERMABOND ONE TO REMOVE A LYPHOMA. VSS Addendum: 12/09/22 at 1628 by Izzy Abarca RN Amended: Links added.
--- NOTE | 2022-12-09 17:06 | NUR ---
: ALL DISCHARGE CRITERIA HAS BEEN MET. VSS, PAIN AT A TOLERABLE LEVEL, VOIDING AND ABLE TO SAFELY AMBULATE AND TRANSFER SELF. IV TAKEN OUT WITHOUT ANY COMPLICATIONS. ALL DISCHARGE INSTRUCTIONS COVERED WITH PATIENT AND ALL QUESTIONS ANSWERED. PATIENT TAKEN OUT VIA WHEELCHAIR TO PERSONAL VEHICLE WHERE FAMILY/FRIEND DROVE PATIENT HOME. Addendum: 12/09/22 at 1751 by Izzy Abarca RN Amended: Links added.
== END | disposition home or self-care (01) ==
LOC: PAS 11:37
PROVIDERS: ATTEND Surgery
DX: K40.90 Unilateral inguinal hernia, without obstruction or gangrene, not specified as recurrent (principal); D17.24 Benign lipomatous neoplasm of skin and subcutaneous tissue of left leg; Z79.899 Other long term (current) drug therapy; Z79.82 Long term (current) use of aspirin; Z98.890 Other specified postprocedural states
CPT/HCPCS: 27337; 36415; 49650; 80053; 82948; 85025; C1781; J0131; J0690; J2250; J2405; J2704; J3010; J3490; J7030; J7120; S2900; Z7506; Z7508; Z7512; A4215; A4618; A7000

== ENCOUNTER 2022-12-17 10:03 | Emergency (ER) | payer OTHER ==
[~2022-12-17] VITALS: Ht 180.3 cm; Wt 108.0 kg
[~2022-12-17 10:03] MED LIST changes: -BUPIVAcaine/PF 2.5 mg/ml (0.25%) 30ml vial IJ ONE; -BUPIVAcaine/PF 2.5 mg/ml (0.25%) 30ml vial ONE; -HYDR-3965 PO; -HYDROcodone/acetaminophen 5mg/325mg tablet PO PRN; -LIDOcaine 1% 30ml preserv. free vial IJ ONE; -LIDOcaine 1% 30ml preserv. free vial ONE; -LIDOcaine 1%/PF 5ML 10 MG/ML VIAL ONE; -acetaminophen 1,000mg/100ml IV 100 ML IV ONE; -cefazolin 2gm/D5W 100mL 100 ML IV ONE; -famotidine 20mg tablet PO ONE; -fentaNYL/PF 50MCG/1 ML 2ML syringe IV PRN; -fentaNYL/PF 50MCG/1 ML 2ML syringe ONE; -hydrALAZINE 20mg/ml inj. IV PRN; -labetalol 20mg/4ml (5mg/ml) syringe IV PRN; -midazolam 1 mg/ML 2ml injection ONE; -morphine 2 MG/ML inj. syringe IV PRN; -morphine 4 MG/ML inj SYRINge IV PRN; -ondansetron/PF 4mg/2ml inj IV PRN; -ondansetron/PF 4mg/2ml inj ONE; -propofol inj 20 ML IV ONE; -ringers solution, lacted 1,000 ML IV SCH; -rocuronium 10mg/ml inj IV ONE
[2022-12-17 10:46] LABS: CLARITY,URINE CLEAR (Clear); COLOR,URINE YELLOW (Yellow); GLUCOSE, URINE NEGATIVE (Neg); KETONES,URINE NEGATIVE (Neg); LEUKOCYTE ESTERASE ,URINE NEGATIVE (Neg); NITRITES, URINE NEGATIVE (Neg); OCCULT BLOOD,URINE NEGATIVE (Neg); PROTEIN,URINE NEGATIVE (Neg); UROBILINOGEN,URINE 0.2 E.U/dL (0.2-1.0)
[2022-12-17 10:48] LABS: UA COLLECTION TYPE CLN CATCH MIDSTREAM
[2022-12-17 12:05] LABS: ALBUMIN 3.5 G/DL (3.4-5.0); ANION GAP 4 (8-16); BLOOD UREA NITROGEN 15 MG/DL (7-18); BUN/CREATININE RATIO 17.9 (10.0-20.0); CALCIUM 9.7 MG/DL (8.5-10.1); CHLORIDE 103 MMOL/L (99-107); CREATININE 0.84 MG/DL (0.60-1.10); GLUCOSE 91 MG/DL (70-104); POTASSIUM 4.3 MMOL/L (3.5-5.1); SODIUM 136 MMOL/L (135-145); TOTAL CARBON DIOXIDE 29.2 MMOL/L (24-32); eGFR > 90 ML/MIN
[2022-12-17] MEDS ORDERED: tamsulosin 0.4mg capsule PO ONE (12:05)
[2022-12-17] MEDS ORDERED: phenazopyridine 100mg tablet PO ONE (12:05)
[2022-12-17] MEDS ORDERED: PHEN-716 PO (12:17)
[2022-12-17] MEDS ORDERED: FLO0.4C PO (12:17)
[2022-12-17 12:30] VITALS: BP 115/81
== END 2022-12-17 12:32 | disposition home or self-care (01) ==
LOC: ER 10:03
DX: T81.9XXA Unspecified complication of procedure, initial encounter (principal); N39.0 Urinary tract infection, site not specified; R30.0 Dysuria; I10 Essential (primary) hypertension; K21.9 Gastro-esophageal reflux disease without esophagitis; G89.29 Other chronic pain; M54.9 Dorsalgia, unspecified; F31.9 Bipolar disorder, unspecified; Z79.899 Other long term (current) drug therapy; Z79.1 Long term (current) use of non-steroidal anti-inflammatories (NSAID); Z79.2 Long term (current) use of antibiotics
CPT/HCPCS: 36415; 80048; 81003; 99284

== ENCOUNTER 2023-06-22 14:55 | Outpatient (CLI) | payer OTHER ==
[~2023-06-22] VITALS: Ht 180.3 cm; Wt 111.1 kg
[~2023-06-22 14:55] MED LIST changes: +PHEN-716 PO
[2023-06-22] MEDS ORDERED: [UNRECOGNIZED DRUG - OTHER] (15:49)
[2023-06-22 16:07] LABS: EOSINOPHILS # (AUTO) 0.2 X10'3 (0-0.9); MEAN CORPUSCULAR HGB CONC 33.4 g/dL (33.0-36.5); MONOCYTES # (AUTO) 0.8 X10'3 (0-0.9)
[2023-06-22 16:09] LABS: BASOPHILS # (AUTO) 0.1 X10'3 (0-0.2); BASOPHILS % (AUTO) 1.2 % (0-1); EOSINOPHILS % (AUTO) 2.5 % (0-6); HEMATOCRIT 53.8 % (42.0-52.0); LYMPHOCYTES # (AUTO) 2.3 X10'3 (1.1-4.8); LYMPHOCYTES % (AUTO) 31.7 % (21-51); MEAN CORPUSCULAR HEMOGLOBIN 33.7 PG (27.0-31.0); MEAN PLATELET VOLUME 7.9 FL (7.4-10.4); MONOCYTES % (AUTO) 11.1 % (2-12); NEUTROPHILS # (AUTO) 3.9 X10'3 (1.8-7.7); NEUTROPHILS % (AUTO) 53.5 % (42-75); PLATELET COUNT 239 X10'3 (140-440); RED BLOOD COUNT 5.33 X10'6 (4.70-6.10); RED CELL DISTRIBUTION WIDTH 13.8 % (11.5-14.5); WHITE BLOOD COUNT 7.3 X10'3 (4.5-11.0)
[2023-06-22 16:20] LABS: ALANINE AMINOTRANSFERASE 36 U/L (12-78); ALBUMIN 3.6 G/DL (3.4-5.0); ALKALINE PHOSPHATASE 95 IU/L (46-116); ANION GAP 3 (8-16); ASPARTATE AMINO TRANSFERASE 35 U/L (10-37); BILIRUBIN,TOTAL 0.5 MG/DL (0.1-1.0); BLOOD UREA NITROGEN 10 MG/DL (7-18); BUN/CREATININE RATIO 10.3 (10.0-20.0); CALCIUM 9.9 MG/DL (8.5-10.1); CHLORIDE 107 MMOL/L (99-107); CREATININE 0.97 MG/DL (0.60-1.10); GLUCOSE 88 MG/DL (70-104); POTASSIUM 3.8 MMOL/L (3.5-5.1); SODIUM 139 MMOL/L (135-145); TOTAL CARBON DIOXIDE 29.2 MMOL/L (24-32); TOTAL PROTEIN 7.3 G/DL (6.4-8.2); eGFR 78 ML/MIN
[2023-06-28] MEDS ORDERED: ringers solution, lacted 1,000 ML IV SCH (05:00)
[2023-06-28] MEDS ORDERED: famotidine 20mg tablet PO ONE (05:30)
[2023-06-28] MEDS ORDERED: cefazolin 2gm/D5W 100mL 100 ML IV ONE (05:30)
== END 2023-06-22 23:59 | disposition home or self-care (01) ==
LOC: LAB 14:55 → EDSTATUS 06-28 10:45
PROVIDERS: ATTEND Surgery
DX: Z01.812 Encounter for preprocedural laboratory examination (principal); K40.90 Unilateral inguinal hernia, without obstruction or gangrene, not specified as recurrent
CPT/HCPCS: 36415; 80053; 85025; J0690; J7120

== ENCOUNTER 2024-09-03 19:44 | Emergency (ER) | payer OTHER ==
[~2024-09-03] VITALS: Ht 180.3 cm; Wt 109.3 kg
[~2024-09-03 19:44] MED LIST changes: -ASPI-612 PO; +DOXY100C77 PO; -PHEN-716 PO; -ZOLP5TAB2 PO; +[UNRECOGNIZED DRUG - OTHER]
[2024-09-03 19:57] VITALS: BP 164/88; PULSE 93; RESP 16; TEMP 98.7; O2SAT 94
[2024-09-03 20:33] LABS: APTT 27 SECONDS (22-32); BASOPHILS % (AUTO) 0.3 % (0-1); EOSINOPHILS % (AUTO) 0.1 % (0-6); HEMATOCRIT 53.6 % (42.0-52.0); HEMOGLOBIN 17.9 g/dl (14.0-17.9); INR 1.1 INR; LYMPHOCYTES % (AUTO) 9.2 % (21-51); MEAN CORPUSCULAR HGB CONC 33.4 g/dL (33.0-36.5); MEAN CORPUSCULAR VOLUME 101.8 FL (78-98); MONOCYTES # (AUTO) 0.5 X10'3 (0-0.9); MONOCYTES % (AUTO) 4.7 % (2-12); NEUTROPHILS # (AUTO) 9.7 X10'3 (1.8-7.7); NEUTROPHILS % (AUTO) 85.7 % (42-75); PLATELET COUNT 271 X10'3 (140-440); PROTHROMBIN TIME 11.5 SECONDS (9.0-12.0); RED BLOOD COUNT 5.27 X10'6 (4.70-6.10); RED CELL DISTRIBUTION WIDTH 13.9 % (11.5-14.5); WHITE BLOOD COUNT 11.3 X10'3 (4.5-11.0)
[2024-09-03 20:37] LABS: ANION GAP 10 (8-16); BLOOD UREA NITROGEN 16 MG/DL (7-18); BUN/CREATININE RATIO 12.4 (10.0-20.0); CALCIUM 10.4 MG/DL (8.5-10.1); CHLORIDE 105 MMOL/L (99-107); CREATININE 1.29 MG/DL (0.60-1.10); GLUCOSE 123 MG/DL (70-104); POTASSIUM 4.5 MMOL/L (3.5-5.1); SODIUM 140 MMOL/L (135-145); TOTAL CARBON DIOXIDE 25.2 MMOL/L (24-32); eCRCL 60 ML/MIN; eGFR 56 ML/MIN
[2024-09-04] MEDS ORDERED: FLO0.4C PO (04:08)
[2024-09-04] MEDS ORDERED: CEPH-585 PO (04:08)
[2024-09-04] MEDS ORDERED: ONDA-243 PO (04:08)
[2024-09-04] MEDS ORDERED: OXYC-145 PO (04:08)
== END 2024-09-04 00:08 | disposition left against medical advice (07) ==
LOC: ER 19:45
DX: R10.11 Right upper quadrant pain (principal); R50.9 Fever, unspecified; R11.10 Vomiting, unspecified; R19.7 Diarrhea, unspecified; R51.9 Headache, unspecified; Z53.21 Procedure and treatment not carried out due to patient leaving prior to being seen by health care provider
CPT/HCPCS: 36415; 70450; 71045; 80048; 84484; 85025; 85610; 85730; 93005

== ENCOUNTER 2024-09-04 01:08 | Emergency (ER) | payer OTHER, MEDICARE ==
[~2024-09-04] VITALS: Ht 180.3 cm; Wt 109.8 kg
[2024-09-04 01:46] LABS: BASOPHILS # (AUTO) 0.1 X10'3 (0-0.2); BASOPHILS % (AUTO) 0.6 % (0-1); EOSINOPHILS % (AUTO) 0.2 % (0-6); HEMATOCRIT 52.6 % (42.0-52.0); HEMOGLOBIN 17.5 g/dl (14.0-17.9); LYMPHOCYTES # (AUTO) 1.4 X10'3 (1.1-4.8); MEAN CORPUSCULAR HEMOGLOBIN 33.6 PG (27.0-31.0); MEAN CORPUSCULAR HGB CONC 33.3 g/dL (33.0-36.5); MEAN CORPUSCULAR VOLUME 101.1 FL (78-98); MEAN PLATELET VOLUME 7.5 FL (7.4-10.4); MONOCYTES # (AUTO) 0.9 X10'3 (0-0.9); NEUTROPHILS # (AUTO) 10.6 X10'3 (1.8-7.7); NEUTROPHILS % (AUTO) 81.2 % (42-75); PLATELET COUNT 254 X10'3 (140-440)
[2024-09-04 02:00] LABS: ALANINE AMINOTRANSFERASE 30 U/L (12-78); ALBUMIN 3.9 G/DL (3.4-5.0); ALKALINE PHOSPHATASE 104 IU/L (46-116); ANION GAP 9 (8-16); ASPARTATE AMINO TRANSFERASE 19 U/L (10-37); BILIRUBIN,TOTAL 0.8 MG/DL (0.1-1.0); BLOOD UREA NITROGEN 18 MG/DL (7-18); BUN/CREATININE RATIO 11.7 (10.0-20.0); CALCIUM 10.1 MG/DL (8.5-10.1); CHLORIDE 103 MMOL/L (99-107); CREATININE 1.54 MG/DL (0.60-1.10); GLUCOSE 119 MG/DL (70-104); LIPASE 22 U/L (16-77); POTASSIUM 4.3 MMOL/L (3.5-5.1); SODIUM 139 MMOL/L (135-145); TOTAL CARBON DIOXIDE 27.4 MMOL/L (24-32); TOTAL PROTEIN 7.9 G/DL (6.4-8.2); eCRCL 50 ML/MIN; eGFR 45 ML/MIN
[2024-09-04 02:22] LABS: BILIRUBIN,URINE SMALL (Neg); CLARITY,URINE CLOUDY (Clear); COLOR,URINE YELLOW (Yellow); GLUCOSE, URINE NEGATIVE (Neg); KETONES,URINE 15 mg/dl (Neg); LEUKOCYTE ESTERASE ,URINE NEGATIVE (Neg); NITRITES, URINE NEGATIVE (Neg); OCCULT BLOOD,URINE LARGE (Neg); PH,URINE 6.5 (4.8-8.0); PROTEIN,URINE TRACE mg/dl (Neg); UROBILINOGEN,URINE 0.2 E.U/dL (0.2-1.0)
[2024-09-04 02:27] LABS: UA COLLECTION TYPE CLN CATCH MIDSTREAM
[2024-09-04 02:28] LABS: BACTERIA,URINE 1+ /HPF (Neg); SQUAMOUS EPITHELIAL CELL,UR FEW /LPF (FEW); WBC,URINE 0-4 /HPF (0-4)
[2024-09-04 02:29] LABS: AMORPHOUS URATES 3+
[2024-09-04] MEDS: normal saline 1000ML IV soln IVB ONE (02:56)
[2024-09-04] MEDS: ondansetron/PF 4mg/2ml inj IV ONE (02:58)
[2024-09-04] MEDS: ketorolac trometh 15mg/ml vial 15 MG/ML ML IV ONE (02:59)
[2024-09-04] MEDS: morphine 4 MG/ML inj SYRINge IV ONE (03:00)
[2024-09-04] MEDS ORDERED: ONDA-243 PO (04:08)
[2024-09-04] MEDS ORDERED: CEPH-585 PO (04:08)
[2024-09-04] MEDS ORDERED: OXYC-145 PO (04:08)
[2024-09-04] MEDS ORDERED: FLO0.4C PO (04:08)
[2024-09-04] MEDS: cephalexin 250mg capsule PO ONE (04:30)
[2024-09-04] MEDS: tamsulosin 0.4mg capsule PO SCH (04:33)
[2024-09-04] MEDS: tamsulosin 0.4mg capsule PO STA (04:40)
[2024-09-04 04:43] VITALS: BP 98/43; PULSE 93; RESP 16; TEMP 98.8; O2SAT 97
== END 2024-09-04 04:47 | disposition home or self-care (01) ==
LOC: ER 01:08
DX: N20.0 Calculus of kidney (principal); Z20.822 Contact with and (suspected) exposure to COVID-19; E78.00 Pure hypercholesterolemia, unspecified; G89.29 Other chronic pain; K21.9 Gastro-esophageal reflux disease without esophagitis; Z79.2 Long term (current) use of antibiotics; Z79.899 Other long term (current) drug therapy; Z86.73 Personal history of transient ischemic attack (TIA), and cerebral infarction without residual deficits
CPT/HCPCS: 36415; 74176; 80053; 81001; 83690; 84145; 85025; 87811; 96361; 96374; 96375; 99285; J1885; J2270; J2405; J7030

== ENCOUNTER 2025-01-12 00:35 | Inpatient (IN) | payer OTHER, MEDICARE ==
[~2025-01-12] VITALS: Ht 180.3 cm; Wt 109.4 kg
[~2025-01-12 00:35] MED LIST changes: +CEPH-585 PO; +DOXY-347 PO; -DOXY100C77 PO; +ONDA-243 PO; +OXYC-145 PO
--- NOTE | 2025-01-12 03:23 | ELECTROCARDIOGRAPH REPORT ---
[facility] Test Date: 2025-01-12 Test Time: 03:21:24 Pat Name: ADILIA COOL Department: [facility]- Patient ID: [facility]-[id number] Room: Gender: M Instructor Bridge: : 1960 Requested By: JANENE GUERRIER Order Number: [id number] Reading MD: Measurements Intervals [place] Rate: 126 P: 0 AR: 0 QRS: 46 QRSD: 95 T: -4 QT: 321 QTc: 465 Interpretive Statements Atrial fibrillation Inferior infarct, age indeterminate Lateral leads are also involved Please click the below link to view image of tracing.
[2025-01-12] MEDS: ibuprofen tablet 400 MG TABLET PO ONE (04:25)
--- NOTE | 2025-01-12 05:21 | Physician Documentation ---
History of Present Illness ~ Chief Complaint: Allergic Reaction Stated Complaint: HAND SWELLING Time Seen by MD: 05:21 Primary Medical Doctor: JANEL GRACE 64-year-old male presenting with you lip swelling hand swelling. He reports starting Bactrim last Tuesday for penile infection. He initially complained of bilateral hand swelling however now on my assessment he is complaining of lip swelling and raspiness in his throat as well as urticarial rash. Reports no history of Atopy Medication Reconciliation Allergies: Coded Allergies: No Known Allergies (Unverified , 01/12/25) Scheduled Cephalexin*Monohydrate* (Keflex*), 2 CAP PO BID Doxycycline Monohydrate (Doxycycline Monohydrate), 1 CAP PO Q12H, (Reported) Pantoprazole Sodium (PROTONIX tablet), 40 MG PO DAILY, (Reported) Testosterone Cypionate (TESTOSTERONE CYPIONATE 200mg/ml 10ml vial), 50 MG IM Q7D, (Reported) Scheduled PRN ONDANSETRON ODT 4mg tablet (Ondansetron Odt), 1 TABLET PO Q6H PRN for nausea/vomiting Oxycodone HCl/Acetaminophen (Percocet 5-325 mg Tablet), 1 TABLET PO Q6H PRN for pain Sildenafil Citrate* (Viagra*), 2 TAB PO DAILY PRN for PRN, (Reported) Miscellaneous Medications [Vitamins B,C,D], Unknown Dose, (Reported) Past Medical History Past Medical History: CVA/TIA/Stroke, High Cholesterol, Cholelithiasis, GERD, Kidney Stones, Chronic Back Pain, Anxiety Past Surgical History: orthopedic surgeries Patient History: Patient reports no known family medical history. Other Past Family History: NONCONTRIBUTORY Alcohol Use: Occasionally Drug Use: none Lives with: Spouse Lives In: Home Review of Systems All Other Systems at this time: Reviewed and Negative Constitutional: Denies: fever Respiratory: Denies: cough, orthopnea, shortness of breath Cardiovascular: Denies: chest pain Gastrointestinal: Denies: abdominal pain Physical Exam Vital Signs: Temperature: 98.1, Source: Oral, Heart Rate: 83, Respiratory Rate: 16, BP: 133/79, Pulse Oximetry: 98, Weight: 109.400 Oxygen Flow Rate: 0 Physical Exam HEENT lower lip angioedema Mild tongue swelling Controlling secretions Breathing comfortably No wheezing Urticaria left lower abdomen Bilateral hand swelling Progress Progress Note 64-year-old male presenting with new onset angioedema in the setting of recently starting Bactrim. He is lip and hand swelling no imminent respiratory failure. He does have urticarial rash as well so I suspect he will respond promptly to epinephrine and histamine blockade. He will be observed in the emergency department and signed out to the incoming physician Dr. Reece for reassessment Results/Orders Reviewed/noted all lab results: Yes Results/Orders Orders - ERIK REECE MD Page Hospitalist (01/12/25 08:33) Fill Out Med Reconciliation (01/12/25 08:33) Completed Orders - ERIK REECE MD Normal Saline 1000ml (Sodium Chloride 10 (01/12/25 08:35) Metoprolol Tartrate Inj (Lopressor Iv) (01/12/25 08:35) Medications Received in ER Medications (Trade) Dose Ordered Sig/Matthew Route PRN Reason Start Time Stop Time Status Last Admin Dose Admin (Motrin tablet) 800 mg ONCE ONCE PO 01/12/25 04:05 01/12/25 04:07 DC 01/12/25 04:25 800 MG (Adrenalin inj) 0.3 mg ONCE ONCE SQ 01/12/25 05:25 01/12/25 05:26 DC 01/12/25 05:37 0.3 MG (Benadryl inj.) 50 mg ONCE ONCE IV 01/12/25 05:25 01/12/25 05:26 DC 01/12/25 05:37 50 MG (Pepcid IV inj) 40 mg ONCE ONCE IV 01/12/25 05:25 01/12/25 05:26 DC 01/12/25 05:38 40 MG (Decadron 4mg/ml inj) 10 mg ONCE ONCE IV 01/12/25 05:25 01/12/25 05:26 DC 01/12/25 05:42 10 MG Sodium Chloride 1,000 ml @ 1,000 mls/hr ONCE ONCE IV 01/12/25 05:50 01/12/25 06:49 DC 01/12/25 05:52 1,000 MLS/HR (sodium chloride 1000ml IV soln) 500 ml ONCE ONCE IVB 01/12/25 08:35 01/12/25 08:36 DC 01/12/25 08:44 500 ML (Lopressor IV) 5 mg ONCE ONCE IV 01/12/25 08:35 01/12/25 08:36 DC 01/12/25 08:45 5 MG Vital Signs 01/12/25 01/12/25 01/12/25 01/12/25 00:42 03:12 05:50 06:37 Temp 98.1 98.9 Pulse 83 122 109 Resp 16 19 21 B/P (MAP) 133/79 122/79 (93) 97/64 (75) Pulse Ox 95 98 95 93 O2 Delivery Room Air* O2 Flow Rate 0 0 0 0 FiO2 21 01/12/25 01/12/25 07:45 08:09 Temp 98.9 Pulse 106 Resp 16 18 B/P (MAP) 99/68 (78) Pulse Ox 93 O2 Flow Rate 0 FiO2 21 Laboratory Tests Test 01/12/25 05:45 White Blood Count 12.7 H Red Blood Count 5.09 Hemoglobin 17.0 Hematocrit 51.0 Mean Corpuscular Volume 100.2 H Mean Corpuscular Hemoglobin 33.3 H Mean Corpuscular Hemoglobin Concent 33.2 Red Cell Distribution Width 14.3 Platelet Count 333 Mean Platelet Volume 7.8 Neutrophils (%) (Auto) 79.1 H Lymphocytes (%) (Auto) 14.1 L Monocytes (%) (Auto) 6.1 Eosinophils (%) (Auto) 0.2 Basophils (%) (Auto) 0.5 Neutrophils # (Auto) 10.0 H Lymphocytes # (Auto) 1.8 Monocytes # (Auto) 0.8 Eosinophils # (Auto) 0.0 Basophils # (Auto) 0.1 CBC Comment Sodium Level 138 Potassium Level 4.9 Chloride Level 103 Carbon Dioxide Level 22.4 L Anion Gap 13 Blood Urea Nitrogen 18 Creatinine 1.11 H Estimated GFR/1.73 m2 66 BUN/Creatinine Ratio 16.2 Glucose Level 114 H Calcium Level 9.6 Total Bilirubin 0.5 Aspartate Amino Transf (AST/SGOT) 21 Alanine Aminotransferase (ALT/SGPT) 28 Alkaline Phosphatase 127 H Total Protein 7.7 Albumin 3.9 Globulin 3.8 Albumin/Globulin Ratio 1.0 L Chemistry Comments Medical Decision Making Findings Care the patient was transferred to nc from Dr. Ham at approximately 6:30 a.m.. Patient was thought to have an allergic reaction possibly to Bactrim. Patient also has some swelling of the lips but no swelling of the tongue. Patient re-evaluated at 8:20 a.m.. Patient has known atrial fibrillation and wa s recently placed on Bactrim for possible secondary infection from phimosis. Patient is found to be tachycardic, hypotensive and diaphoretic. Patient will be given normal saline 500 cc IV bolus and his Lopressor will be given IV 5 mg. Patient will require admission. Test results, treatment plan and need for admission discussed with the patient. 8:38 a.m.: Case discussed with the hospitalist/resident for admission. Differential Dx:Considerations: Include: Anaphylaxis, Angioedema, Bronchospasm Departure Time of Disposition: 08:31 Admitted to Inpatient Unit: to hospitalist Admission Level of Care: PCU with Tele Impression: Primary Impression: Angioedema Qualified Codes: T78.3XXA - Angioneurotic edema, initial encounter Additional Impression: Atrial fibrillation with rapid ventricular response Condition: Guarded Education Educated: Patient Educated regarding: diagnosis, treatment Critical Care Note Total Time (mins): 30 Critical Care Note The very real possibility of a deterioration of this patient's condition required the highest level of my preparedness for sudden, emergent intervention. I provided critical care services, which included medication orders, frequent reevaluations of the patient's condition and response to treatment, ordering and reviewing test results, and discussing the case with various consultants. Excludes time spent performing separately billable procedures. The critical care time associated with the care of the patient was 30 minutes in the management of angioedema requiring epinephrine Signature Scribe Signature: margi Attestation: JANENE Sims MD January 12, 2025 05:21 ERIK REECE MD January 12, 2025 08:32
[2025-01-12] MEDS: diphenhydrAMINE 50 mg/ml inj IV ONE (05:37)
[2025-01-12] MEDS: epiNEPHrine 1 mg/ml inj SQ ONE (05:37)
[2025-01-12] MEDS: famotidine/PF 10 mg/ml inj IV ONE (05:38)
[2025-01-12] MEDS: dexamethasone 4mg/ml inj IV ONE (05:42)
[2025-01-12] MEDS: normal saline 1000ml 1,000 ML IV ONE (05:52)
[2025-01-12 06:09] LABS: BASOPHILS # (AUTO) 0.1 X10'3 (0-0.2); BASOPHILS % (AUTO) 0.5 % (0-1); EOSINOPHILS % (AUTO) 0.2 % (0-6); LYMPHOCYTES # (AUTO) 1.8 X10'3 (1.1-4.8); LYMPHOCYTES % (AUTO) 14.1 % (21-51); MEAN CORPUSCULAR HEMOGLOBIN 33.3 PG (27.0-31.0); MEAN CORPUSCULAR HGB CONC 33.2 g/dL (33.0-36.5); MEAN CORPUSCULAR VOLUME 100.2 FL (78-98); MEAN PLATELET VOLUME 7.8 FL (7.4-10.4); MONOCYTES # (AUTO) 0.8 X10'3 (0-0.9); MONOCYTES % (AUTO) 6.1 % (2-12); NEUTROPHILS % (AUTO) 79.1 % (42-75); PLATELET COUNT 333 X10'3 (140-440); RED BLOOD COUNT 5.09 X10'6 (4.70-6.10); RED CELL DISTRIBUTION WIDTH 14.3 % (11.5-14.5); WHITE BLOOD COUNT 12.7 X10'3 (4.5-11.0)
[2025-01-12 06:23] LABS: ALANINE AMINOTRANSFERASE 28 U/L (12-78); ALBUMIN 3.9 G/DL (3.4-5.0); ALKALINE PHOSPHATASE 127 IU/L (46-116); ANION GAP 13 (8-16); ASPARTATE AMINO TRANSFERASE 21 U/L (10-37); BILIRUBIN,TOTAL 0.5 MG/DL (0.1-1.0); BLOOD UREA NITROGEN 18 MG/DL (7-18); BUN/CREATININE RATIO 16.2 (10.0-20.0); CALCIUM 9.6 MG/DL (8.5-10.1); CHLORIDE 103 MMOL/L (99-107); CREATININE 1.11 MG/DL (0.60-1.10); GLUCOSE 114 MG/DL (70-104); POTASSIUM 4.9 MMOL/L (3.5-5.1); SODIUM 138 MMOL/L (135-145); TOTAL CARBON DIOXIDE 22.4 MMOL/L (24-32); TOTAL PROTEIN 7.7 G/DL (6.4-8.2); eCRCL 70 ML/MIN; eGFR 66 ML/MIN
[2025-01-12] MEDS: normal saline 1000ML IV soln IVB ONE (08:44)
[2025-01-12] MEDS: metoprolol tartrate 1mg/ml inj IV ONE (08:45)
[2025-01-12] MEDS ORDERED: mag hydrox/Alum hydrox/simeth 30ml oral suspension PO PRN (11:05)
[2025-01-12] MEDS ORDERED: magnesium sulf-water 4G/100mL 100 ML IV PRN (11:05)
[2025-01-12] MEDS ORDERED: magnesium sulf-water 2g/50mL 50 ML IV PRN (11:05)
[2025-01-12] MEDS ORDERED: magnesium hydroxide 30ml (MOM) UD suspension PO PRN (11:05)
[2025-01-12] MEDS ORDERED: potassium Cl 40MEQ/1/2NS 520ml 520 ML IV PRN (11:05)
[2025-01-12] MEDS ORDERED: potassium Cl 20 mEq SR tablet PO PRN ×2 (11:05)
[2025-01-12] MEDS ORDERED: magnesium Cl slow-release 64mg tablet PO PRN (11:05)
[2025-01-12] MEDS ORDERED: ondansetron/PF 4mg/2ml inj IV PRN (11:05)
[2025-01-12] MEDS ORDERED: acetaminophen 325mg tablet PO PRN (11:05)
--- NOTE | 2025-01-12 11:19 | HISTORY AND PHYSICAL-Residence ---
History & Physical Providers to CC Resident Creating Document: HAMMAD TEIXEIRA RES ~ History of Present Illness Primary Medical Doctor: JANEL Reason for Admit\Complaint: AFib with RVR and hypotension History of Present Illness 64-year-old male patient with a past medical history of AFib presents to the hospital with complaints of generalized new onset swelling of the whole body. Reports that he has been working and was using motor oral yesterday following which she developed tingling of his hands and today he woke up with generalized angioedema. Had some symptoms of difficulty swallowing but denied any shortness of breath. He was given epinephrine 0.3 mg once in the ER, Benadryl IV and Decadron 10 mg once which resolved his difficulty swallowing and also improved to swelling. However, he developed AFib with RVR with a blood pressures in the low 90s systolic due to which she has been admitted for further monitoring. He is noncompliant with his Eliquis all the metoprolol. On further questioning, it was found that the patient has been taking Bactrim since the last three days for a genital infection. He reports that this is a 2nd genital infection. It developed approximately two weeks ago as an ulcer with surrounding small pustules which together formed a superficial ulcer with purulent drainage. States that Ulcer associated with tingling sensation. [facility] No testing or culture was done for the ulcer but his urinalysis was cleared for infection. Denies any fevers or chills. Only sexually active with his . Allergies: Coded Allergies: No Known Allergies (Unverified , 01/12/25) Home Medications Home Medications Active Ondansetron Odt (Ondansetron HCl) 4 Mg Tab.rapdis 1 Tablet PO Q6H PRN Percocet 5-325 mg Tablet (Oxycodone HCl/Acetaminophen) 5 Mg-325 Mg Tablet 1 Tablet PO Q6H PRN Keflex* (Cephalexin HCl) 500 Mg Capsule 2 Cap PO BID Reported Doxycycline Monohydrate 100 Mg Capsule 1 Cap PO Q12H [Vitamins B,C,D] Unknown Strength Unknown Dose Viagra* (Sildenafil Citrate) 50 Mg Tablet 2 Tab PO DAILY PRN TESTOSTERONE CYPIONATE 200mg/ml 10ml vial (Testosterone Cypionate) Unknown Strength Vial 50 Mg IM Q7D PROTONIX tablet (Pantoprazole Sodium) 40 Mg Tablet.dr 40 Mg PO DAILY Past Medical History Past Medical History Atrial fibrillation Past Surgical History Surgical History Comment Right shoulder replacement, right knee replacement, cholecystectomy, appendectomy, bilateral inguinal hernia repair Family History Family History: Patient reports no known family medical history. Past Social History Social History Comment Lifetime Nonsmoker, no alcohol or illicit drug abuse Used to work as a diesel bus mechanic Lives at home with his Smoking: Non-Smoker Alcohol Use: Occasionally Drug Use: None Lives with: Spouse Lives In: Home ROS ROS As stated above in the HPI, otherwise all systems are reviewed and negative. Constitutional: Denies: fever Respiratory: Denies: cough, orthopnea, shortness of breath Cardiovascular: Denies: chest pain Gastrointestinal: Denies: abdominal pain Exam Vitals: Vital Signs Date Time Temp Pulse Resp B/P (MAP) Pulse Ox O2 Delivery O2 Flow Rate FiO2 01/12/25 10:42 98.9 83 16 99/75 (83) 93 0 21 01/12/25 03:12 Room Air* General: General: Awake and Alert, no acute distress. HEENT: Conjunctiva pink, Sclera clear, Mucus Membranes moist. Swollen lips. Tongue normal in size, nonobstructive Neck: Increased neck size Resp: Unlabored. Lungs clear to auscultation bilaterally. Heart: Regular Rate and rhythm, normal S1 and S2 without murmur, rub or gallop. Abdomen: Obese, Soft and non tender no organomegaly. Extremities: Diffuse edema of the bilateral upper extremities Genitals: Superficial slept off ulcer with underlying erythema, serous discharge present Skin: Warm and Dry. Mild wheels present along the lower quadrants of the abdomen Diagnostic Data Last Recorded Lab Results: 01/12/25 0545 01/12/25 0545 Advance Care Planning Advanced Care plannin - 30 Minutes Additional Plan 1. Angioedema: Bactrim induced - received IV Decadron 10 mg, Benadryl IV 50 mg and epinephrine 0.3 mg once - improvement in angioedema noted after the above - mildly hypotensive at presentation which has resolved with IV fluids - continue IV Benadryl 25 mg p.r.n. and 4 mg Decadron tonight and tomorrow in a.m. - advised to list Bactrim as an allergy and stopped taking it 2. Penile ulcer: Differentials include herpes, chancroid or gonorrhea Requested for testing - HIV negative - follow gonococcal and syphilis - to follow up with outpatient cigar inspector after discharge 3. Chronic atrial fibrillation: Noncompliance to Eliquis Mildly hypotensive also secondary to above Continue metoprolol and Eliquis. Restart medications after reconciliation Lines: PIV Code status: Full code DVT prophylaxis: Heparin Diet: Regular Hammad Teixeira PGY2, Internal medicine resident Date of Service: January 12, 2025 Billing Provider: SOLO GARCIA MD Common Visit Codes: [id number] INP/OBS CARE (HIGH) Secondary Visit Codes: [id number] CARE PLAN 30 MINUTES HAMMAD TEIXEIRA, RES January 12, 2025 11:19 SOLO GARCIA MD January 12, 2025 21:22
[2025-01-12 12:38] LABS: HIV ANTIBODY 1&2 RAPID NON-REACTIVE (Neg)
[2025-01-12] MEDS: normal saline 1000ml 1,000 ML IV SCH (14:23)
[2025-01-12] MEDS ORDERED: diphenhydrAMINE 50 mg/ml inj IM PRN (14:45)
[2025-01-12 15:28] LABS: SYPHILIS SCREENING TEST POC NEGATIVE (Negative)
[2025-01-12 18:00] VITALS: BP 107/67; PULSE 87; RESP 20; TEMP 97.2; O2SAT 92
[2025-01-12 20:00] VITALS: O2SAT 92
[2025-01-12] MEDS: K and/or MAG REPLACEMENT MC SCH (20:00)
[2025-01-12 20:05] VITALS: BP 107/67; PULSE 87; RESP 16; RESP 20; TEMP 97.2; O2SAT 92; O2SAT 96
[2025-01-12] MEDS ORDERED: APIX5TAB3 PO (20:19)
[2025-01-12] MEDS ORDERED: METO-395 PO (20:19)
[2025-01-12] MEDS: dexamethasone 4mg/ml inj IV SCH (21:01)
[2025-01-12] MEDS: heparin, porcine 5000 units/ml vial SQ SCH (21:02)
[2025-01-12] MEDS: docusate sod 100mg capsule PO SCH (21:03)
[2025-01-12 22:00] VITALS: BP 128/64; PULSE 91; RESP 20; TEMP 97.5; O2SAT 97
[2025-01-12] MEDS ORDERED: diazepam inj 5 MG/ML inj. IV ONE (23:05)
[2025-01-13 02:00] VITALS: BP 101/58; PULSE 87; RESP 18; TEMP 97.4; O2SAT 98
[2025-01-13] MEDS: Melatonin 3mg tablet PO STA (03:06)
[2025-01-13 06:30] LABS: BASOPHILS # (AUTO) 0.1 X10'3 (0-0.2); BASOPHILS % (AUTO) 0.7 % (0-1); EOSINOPHILS % (AUTO) 0 % (0-6); HEMATOCRIT 42.5 % (42.0-52.0); HEMOGLOBIN 14.3 g/dl (14.0-17.9); LYMPHOCYTES # (AUTO) 1.3 X10'3 (1.1-4.8); LYMPHOCYTES % (AUTO) 9.2 % (21-51); MEAN CORPUSCULAR HEMOGLOBIN 33.7 PG (27.0-31.0); MEAN CORPUSCULAR HGB CONC 33.7 g/dL (33.0-36.5); MEAN CORPUSCULAR VOLUME 99.8 FL (78-98); MEAN PLATELET VOLUME 7.6 FL (7.4-10.4); MONOCYTES # (AUTO) 0.4 X10'3 (0-0.9); MONOCYTES % (AUTO) 2.6 % (2-12); NEUTROPHILS # (AUTO) 12.2 X10'3 (1.8-7.7); NEUTROPHILS % (AUTO) 87.5 % (42-75); PLATELET COUNT 286 X10'3 (140-440); RED BLOOD COUNT 4.26 X10'6 (4.70-6.10); RED CELL DISTRIBUTION WIDTH 13.6 % (11.5-14.5)
[2025-01-13 06:46] LABS: ALBUMIN 3.1 G/DL (3.4-5.0); ANION GAP 9 (8-16); BLOOD UREA NITROGEN 22 MG/DL (7-18); BUN/CREATININE RATIO 25.9 (10.0-20.0); CALCIUM 9.3 MG/DL (8.5-10.1); CHLORIDE 107 MMOL/L (99-107); CREATININE 0.85 MG/DL (0.60-1.10); GLUCOSE 187 MG/DL (70-104); POTASSIUM 4.6 MMOL/L (3.5-5.1); SODIUM 140 MMOL/L (135-145); TOTAL CARBON DIOXIDE 23.9 MMOL/L (24-32); eCRCL 91 ML/MIN; eGFR 90 ML/MIN
[2025-01-13 07:00] VITALS: BP 111/61; PULSE 87; RESP 15; TEMP 98; O2SAT 94
[2025-01-13 11:00] VITALS: BP 105/54; PULSE 59; RESP 21; TEMP 98.3; O2SAT 95
[2025-01-13] MEDS: predniSONE 20 mg tablet PO ONE (11:54)
[2025-01-13] MEDS ORDERED: pr (12:10)
[2025-01-13] MEDS ORDERED: PRED10TA23 PO (12:10)
[2025-01-13 13:30] VITALS: O2SAT 94
--- NOTE | 2025-01-13 21:14 | DISCHARGE SUMMARY-Residence ---
Discharge Summary Providers to CC Resident Creating Document: BUBBA HO, RES ~ Discharge Summary Admission Diagnosis: Afib with RVR Hospital Course DATE OF ADMISSION: 01/12/2025 DATE OF DISCHARGE: 01/13/2025 Discharge Diagnosis\Comment: Anaphylactic shock Angioedema AFib with RVR Operations\Procedures: None Consultants: None Complications: None Condition on DC: Stable New Medications: [pr] () Prednisone (Prednisone) 10 Mg Tablet 2 TABLET PO DAILY for 5 Days, #10 TABLET 20mg q24h for 5 days. Continued Medications: Apixaban (Eliquis) 5 Mg Tablet 1 TAB PO Q12H for 30 Days, #60 TAB 0 Refills Metoprolol Succinate (Metoprolol Succinate) 25 Mg Tab.sr.24h 1 TAB PO DAILY for 30 Days, #30 TAB 0 Refills ONDANSETRON ODT 4mg tablet (Ondansetron Odt) 4 Mg Tab.rapdis 1 TABLET PO Q6H PRN for nausea/vomiting, #12 TABLET Oxycodone HCl/Acetaminophen (Percocet 5-325 mg Tablet) 5 Mg-325 Mg Tablet 1 TABLET PO Q6H PRN for pain, #16 TABLET Pantoprazole Sodium (PROTONIX tablet) 40 Mg Tablet.dr 40 MG PO DAILY, TAB Sildenafil Citrate* (Viagra*) 50 Mg Tablet 2 TAB PO DAILY PRN for PRN, TAB Testosterone Cypionate (TESTOSTERONE CYPIONATE 200mg/ml 10ml vial) Unknown Strength Vial 50 MG IM Q7D, EACH [Vitamins B,C,D] () Unknown Strength Unknown Dose Discontinued Medications: Cephalexin*Monohydrate* (Keflex*) 500 Mg Capsule 2 CAP PO BID, #28 CAP Doxycycline Monohydrate (Doxycycline Monohydrate) 100 Mg Capsule 1 CAP PO Q12H, CAP Discharge Summary: HPI at the time of admission for admitting physician 64-year-old male patient with a past medical history of AFib presents to the hospital with complaints of generalized new onset swelling of the whole body. Reports that he has been working and was using motor oral yesterday following which she developed tingling of his hands and today he woke up with generalized angioedema. Had some symptoms of difficulty swallowing but denied any shortness of breath. He was given epinephrine 0.3 mg once in the ER, Benadryl IV and Decadron 10 mg once which resolved his difficulty swallowing and also improved to swelling. However, he developed AFib with RVR with a blood pressures in the low 90s systolic due to which she has been admitted for further monitoring. He is noncompliant with his Eliquis all the metoprolol. On further questioning, it was found that the patient has been taking Bactrim since the last three days for a genital infection. He reports that this is a 2nd genital infection. It developed approximately two weeks ago as an ulcer with surrounding small pustules which together formed a superficial ulcer with purulent drainage. States that Ulcer associated with tingling sensation. He went to the [place] who prescribed him the antibiotic. No testing or culture was done for the ulcer but his urinalysis was cleared for infection. Denies any fevers or chills. Only sexually active with his . Course in the hospital Admitted for Angioedema and anaphylactic shock secondary to Bactrim medication. Received IV Decadron 10 mg, Benadryl IV 50 mg, epinephrine 0.3 mg once and there is a significant improvement in the angioedema after taking this medications and we advised to stop Bactrim. HIV is negative. We Continued metoprolol and Eliquis for chronic AFib . We recommended to follow up with the house admin for pain and ulcer. Received heparin for DVT prophylaxis. Patient declined using cephalexin and doxycycline for his pain and ulcer but he was on Bactrim. Patient did not received cephalexin and doxycycline and Bactrim in hospital duration. Examined at the time of discharge Vital Signs Date Time Temp Pulse Resp B/P (MAP) Pulse Ox O2 Delivery O2 Flow Rate FiO2 01/13/25 13:30 94 Room Air* 0 21 01/13/25 11:00 98.3 59 21 105/54 (71) General: Awake and Alert, no acute distress. HEENT: Conjunctiva pink, Sclera clear, Mucus Membranes moist. Swollen lips. Tongue normal in size, nonobstructive Neck: Increased neck size Resp: Unlabored. Lungs clear to auscultation bilaterally. Heart: Regular Rate and rhythm, normal S1 and S2 without murmur, rub or gallop. Abdomen: Obese, Soft and non tender no organomegaly. Extremities: Diffuse edema of the bilateral upper extremities Genitals: Superficial slept off ulcer with underlying erythema, serous dischar ge present Skin: Warm and Dry. Mild wheels present along the lower quadrants of the abdomen Laboratory Tests Test 01/12/25 05:45 01/12/25 11:04 01/12/25 11:21 01/13/25 05:56 White Blood Count 12.7 X10'3 14.0 X10'3 Red Blood Count 5.09 X10'6 4.26 X10'6 Hemoglobin 17.0 g/dl 14.3 g/dl Hematocrit 51.0 % 42.5 % Mean Corpuscular Volume 100.2 FL 99.8 FL Mean Corpuscular Hemoglobin 33.3 PG 33.7 PG Mean Corpuscular Hemoglobin Concent 33.2 g/dL 33.7 g/dL Red Cell Distribution Width 14.3 % 13.6 % Platelet Count 333 X10'3 286 X10'3 Mean Platelet Volume 7.8 FL 7.6 FL Neutrophils (%) (Auto) 79.1 % 87.5 % Lymphocytes (%) (Auto) 14.1 % 9.2 % Monocytes (%) (Auto) 6.1 % 2.6 % Eosinophils (%) (Auto) 0.2 % 0 % Basophils (%) (Auto) 0.5 % 0.7 % Neutrophils # (Auto) 10.0 X10'3 12.2 X10'3 Lymphocytes # (Auto) 1.8 X10'3 1.3 X10'3 Monocytes # (Auto) 0.8 X10'3 0.4 X10'3 Eosinophils # (Auto) 0.0 X10'3 0.0 X10'3 Basophils # (Auto) 0.1 X10'3 0.1 X10'3 CBC Comment Sodium Level 138 MMOL/L 140 MMOL/L Potassium Level 4.9 MMOL/L 4.6 MMOL/L Chloride Level 103 MMOL/L 107 MMOL/L Carbon Dioxide Level 22.4 MMOL/L 23.9 MMOL/L Anion Gap 13 9 Blood Urea Nitrogen 18 MG/DL 22 MG/DL Creatinine 1.11 MG/DL 0.85 MG/DL Estimated GFR/1.73 m2 66 ML/MIN 90 ML/MIN BUN/Creatinine Ratio 16.2 25.9 Glucose Level 114 MG/DL 187 MG/DL Calcium Level 9.6 MG/DL 9.3 MG/DL Total Bilirubin 0.5 MG/DL Aspartate Amino Transf (AST/SGOT) 21 U/L Alanine Aminotransferase (ALT/SGPT) 28 U/L Alkaline Phosphatase 127 IU/L Total Protein 7.7 G/DL Albumin 3.9 G/DL 3.1 G/DL Globulin 3.8 G/DL Albumin/Globulin Ratio 1.0 Chemistry Comments Syphilis Serology Negative HIV (1&2) Antibody Non-reactive Magnesium Level 2.0 MG/DL Discharge advise New Medications: Prednisone 10 Mg Tablet 20mg q24h for 5 days. Continued Medications: Apixaban (Eliquis) 5 Mg Tablet Metoprolol Succinate 25 Mg Tab.sr.24h ONDANSETRON ODT 4mg tablet (Ondansetron Odt) 4 Mg Tab.rapdis Oxycodone HCl/Acetaminophen (Percocet 5-325 mg Tablet) 5 Mg-325 Mg Tablet Pantoprazole Sodium (PROTONIX tablet) 40 Mg Tablet. Sildenafil Citrate* (Viagra*) 50 Mg Tablet Testosterone Cypionate (TESTOSTERONE CYPIONATE 200mg/ml 10ml vial) Unknown Strength Vial [Vitamins B,C,D] Unknown Strength Discontinued Medications: Cephalexin*Monohydrate* (Keflex*) 500 Mg Capsule Doxycycline Monohydrate 100 Mg Capsule Bactrim *Problems/Diagnosis: (1) Anaphylactic shock (2) Angioedema (3) Atrial fibrillation with rapid ventricular response Status: Acute Total Time Spent on D/C: > 30 Minutes Date of Service: January 13, 2025 Billing Provider: SOLO GARCIA MD, VENKATESH, RES January 13, 2025 21:11
== END 2025-01-13 13:30 | disposition home or self-care (01) | DRG 916 ==
LOC: ER 00:36 → ED HOLD 08:39 → PCU 3S 19:55
PROVIDERS: ADMIT Internal Medicine; ATTEND Internal Medicine
DX: T88.6XXA Anaphylactic reaction due to adverse effect of correct drug or medicament properly administered, initial encounter (principal); I48.20 Chronic atrial fibrillation, unspecified; T78.3XXA Angioneurotic edema, initial encounter; F41.9 Anxiety disorder, unspecified; N48.5 Ulcer of penis; G89.29 Other chronic pain; T36.8X5A Adverse effect of other systemic antibiotics, initial encounter; E78.00 Pure hypercholesterolemia, unspecified; K21.9 Gastro-esophageal reflux disease without esophagitis; I95.9 Hypotension, unspecified; T45.516A Underdosing of anticoagulants, initial encounter; T44.7X6A Underdosing of beta-adrenoreceptor antagonists, initial encounter; Z96.611 Presence of right artificial shoulder joint; Z96.651 Presence of right artificial knee joint; Z90.49 Acquired absence of other specified parts of digestive tract; Z91.148 Patient's other noncompliance with medication regimen for other reason; Y92.89 Other specified places as the place of occurrence of the external cause; Z87.442 Personal history of urinary calculi; Z86.73 Personal history of transient ischemic attack (TIA), and cerebral infarction without residual deficits
CPT/HCPCS: 36415; 80048; 80053; 82607; 83735; 85025; 86703; 87081; 93005; 96361; 96372; 96374; 96375; 99291; G0378; J0171; J1100; J1200; J1644; J3490; J7030; J7512

== ENCOUNTER 2025-04-26 12:36 | Outpatient (CLI) | payer OTHER ==
[2025-04-24 16:27] LABS: CREATININE 0.88 MG/DL (0.60-1.10); TOTAL CARBON DIOXIDE 27.8 MMOL/L (24-32); eGFR 87 ML/MIN
[~2025-04-26 12:36] MED LIST changes: +APIX5TAB3 PO; -CEPH-585 PO; -DOXY-347 PO; +METO-395 PO; +iohexol 300mg/ml 100ml inj. ONE; +pr
--- NOTE | 2025-04-26 13:33 | RADIOLOGY REPORT ---
CLINICAL HISTORY: UNIL INGUINAL HERNIA, W/O OBST OR GANGR, NOT SPCF RECUR TECHNIQUE: CT of the abdomen and pelvis was performed without IV contrast. This exam was performed ac cording to our departmental dose optimization program. Up-to-date CT equipment and radiation dose red uction techniques are utilized as appropriate. CTDI 32.4 DLP 2118.1 COMPARISON: CT CT ABDOMEN PELVIS on DOS: 09/04/24, CT CT ABDOMEN PELVIS on DOS: 05/20/24, CT ABDOMEN P KELVIN on DOS: 11/07/22, CT ABDOMEN PELVIS on DOS: 05/18/21, CT ABDOMEN PELVIS on DOS: 04/15/20 FINDINGS: Abdomen/Pelvis: The spleen, pancreas, adrenal glands, left kidney, liver, bladder, and prostate gland unremarkable. T he gallbladder is absent. There is 6 mm nonobstructing right renal calculus. The abdominal aorta is normal in course and caliber. There are no significant atherosclerotic calcifi cations. There is no free intraperitoneal air or fluid. There is no enlarged abdominal pelvic lymph node. There is no bowel wall thickening or dilatation. The appendix is normal. There has been left inguinal hernia repair with mesh noted. A tiny amount of fat extends just lateral to the mesh into the inguinal canal, similar to exam performed on november 07, 2022. There is a tiny fat containing right inguinal hernia. Other: The imaged lower thorax demonstrates coronary artery calcifications and mild atelectatic changes. The re are aortic valvular calcifications. No acute osseous abnormality is evident. Impression: No acute noncontrast CT abnormality of the abdomen / pelvis. Periodic cholycystectomy. Coronary artery calcifications. Aortic valvular calcifications. Left inguinal hernia repair. Please read details above. 6mm nonobstructing right renal calculus.
== END 2025-04-26 23:59 | disposition home or self-care (01) ==
LOC: RAD 12:36
PROVIDERS: ATTEND Surgery
DX: Z01.818 Encounter for other preprocedural examination (principal); N20.0 Calculus of kidney; J98.11 Atelectasis; I25.10 Atherosclerotic heart disease of native coronary artery without angina pectoris; I70.0 Atherosclerosis of aorta; K40.90 Unilateral inguinal hernia, without obstruction or gangrene, not specified as recurrent; N50.812 Left testicular pain; Z90.49 Acquired absence of other specified parts of digestive tract
CPT/HCPCS: 36415; 74177; 80048; Q9967

== ENCOUNTER 2025-08-08 06:59 | Day surgery (SDC) | payer OTHER ==
[2025-08-07 11:27] LABS: MEAN PLATELET VOLUME 7.6 FL (7.4-10.4); RED CELL DISTRIBUTION WIDTH 14.1 % (11.5-14.5)
[2025-08-07 11:37] LABS: CREATININE 1.14 MG/DL (0.60-1.10); TOTAL CARBON DIOXIDE 28.3 MMOL/L (24-32); eGFR 64 ML/MIN
[2025-08-07 11:46] LABS: INR 1.1 INR
[~2025-08-08] VITALS: Ht 180.3 cm; Wt 109.4 kg
[~2025-08-08 06:59] MED LIST changes: -iohexol 300mg/ml 100ml inj. ONE
--- NOTE | 2025-08-08 07:17 | ELECTROCARDIOGRAPH REPORT ---
[facility] Test Date: 2025-08-08 Test Time: 07:16:03 Pat Name: ADILIA COOL Department: [facility] Patient ID: [facility]-[id number] Room: Gender: M [employer] Operator: KATHIE : 1960 Requested By: NOHEMY NAVARRO Order Number: [id number] Reading MD: Dr. YASMINE Navarro Measurements Intervals [place] Rate: 80 P: 0 ID: 0 QRS: 61 QRSD: 108 T: 48 QT: 371 QTc: 428 Interpretive Statements Atrial fibrillation Electronically Signed On 08-08-2025 16:52:[address] YASMINE Navarro Please click the below link to view image of tracing.
[2025-08-08 07:22] VITALS: BP 105/69; PULSE 73; RESP 16; TEMP 98.1; O2SAT 95
[2025-08-08] MEDS ORDERED: amiodarone 150mg/dext, iso-os 100 ML IV ONE (07:35)
[2025-08-08] MEDS ORDERED: normal saline 1000ml 1,000 ML IV SCH (07:35)
[2025-08-08] MEDS ORDERED: morphine 10mg/ml inj. IV ONE (07:35)
[2025-08-08] MEDS ORDERED: MIDAZolam 1mg/ml 10ml vial IV ONE (07:35)
[2025-08-08] MEDS ORDERED: atropine 0.1mg/ml 10ml syringe IV ONE (07:35)
[2025-08-08] MEDS ORDERED: amiodarone 50MG/ML inj IV ONE (07:42)
[2025-08-08] MEDS ORDERED: midazolam 1 mg/ML 2ml injection ONE (07:43)
[2025-08-08] MEDS ORDERED: fentaNYL/PF 50MCG/1 ML 2ML syringe ONE (07:43)
[2025-08-08 08:00] VITALS: RESP 16; O2SAT 95
[2025-08-08] MEDS ORDERED: IBUP-2803 PO (08:06)
[2025-08-08] MEDS ORDERED: FLEC100T3 PO (08:06)
[2025-08-08] MEDS ORDERED: ZOLP-678 PO (08:07)
[2025-08-08 08:47] VITALS: BP 111/77; PULSE 68; RESP 16; O2SAT 93
--- NOTE | 2025-08-08 08:53 | ELECTROCARDIOGRAPH REPORT ---
[facility] Test Date: 2025-08-08 Test Time: 08:50:37 Pat Name: ADILIA COOL Department: [facility] Patient ID: [facility]-[id number] Room: Gender: M [employer] Operator: KATHIE : 1960 Requested By: NOHEMY ORTIZ Order Number: [id number] Reading MD: Measurements Intervals [place] Rate: 70 P: 51 [place]: 211 QRS: 65 QRSD: 105 T: 61 QT: 394 QTc: 426 Interpretive Statements Sinus rhythm Inferior infarct, acute (LCx) Minimal ST elevation, anterior leads Lateral leads are also involved Please click the below link to view image of tracing.
[2025-08-08 09:00] VITALS: BP_SYST 105; BP_SYST 109; BP_DIAS 69; BP_DIAS 77; PULSE 71; PULSE 73; RESP 16; TEMP 98.1; O2SAT 92
--- NOTE | 2025-08-08 09:02 | CARDIOLOGY REPORT ---
DATE OF SERVICE: 08/08/2025 DICTATING PHYSICIAN: YASMINE Navarro MD ELECTRICAL CARDIOVERSION REPORT INDICATIONS: The patient is a 65-year-old male with hyperlipidemia, paroxysmal atrial fibrillation with episodes of chest pain and palpitation. History of PAF starts back in 2020. Primarily was treated by Dr. Mock. He was on flecainide when he came and he was evaluated in our office back in 06/29. He was started on flecainide 50 b.i.d. for recurrence of atrial fibrillation and then subsequently, it was increased to 100 mg p.o. b.i.d. and because of the persisting atrial fibrillation and symptoms, the patient preferred to proceed with electrocardioversion. Risks, benefits, and alternative options were discussed. Informed consent obtained. DESCRIPTION OF PROCEDURE: Anterior and posterior patch was used using 200 joules biphasic synchronized electrical energy converted to normal sinus rhythm. Remained in normal sinus rhythm. IMPRESSION: A 65-year-old male with paroxysmal A-fib, which was become persistent, converted to normal sinus rhythm. RECOMMENDATIONS: Continue flecainide 100 mg p.o. b.i.d., beta christopher and apixaban 5 mg p.o. b.i.d. The patient because of body habitus and snoring appears to have sleep apnea. Recommended evaluation and treatment for the same. Recommended diet, weight loss, and exercise program. YASMINE Navarro MD TID: [id number] RECEIPT: [id number] CHRISTINE/Lj Loza cc: Jason HOWARD
[2025-08-08 09:15] VITALS: BP 102/76; PULSE 68; RESP 16; O2SAT 93
--- NOTE | 2025-08-09 16:14 | ELECTROCARDIOGRAPH REPORT ---
[facility] Test Date: 2025-08-08 Test Time: 08:50:54 Pat Name: ADILIA COOL Department: [facility] Patient ID: [id number] Room: Gender: M [employer] Operator: KATHIE : 1960 Requested By: NOHEMY NAVARRO Order Number: [id number] Reading MD: Dr. YASMINE Navarro Measurements Intervals [place] Rate: 70 P: 54 [place]: 213 QRS: 69 QRSD: 105 T: 61 QT: 393 QTc: 425 Interpretive Statements Sinus rhythm Borderline prolonged [place] interval ST elevation suggests acute pericarditis Electronically Signed On 08-08-2025 16:52:[address] YASMINE Nvaarro Please click the below link to view image of tracing.
== END 2025-08-08 10:00 | disposition home or self-care (01) ==
LOC: SSTAY O 06:59
PROVIDERS: ATTEND Internal Medicine Cardiovascular Disease
DX: I48.91 Unspecified atrial fibrillation (principal); E78.5 Hyperlipidemia, unspecified; Z79.01 Long term (current) use of anticoagulants; Z79.899 Other long term (current) drug therapy; Z90.49 Acquired absence of other specified parts of digestive tract; Z96.651 Presence of right artificial knee joint; Z98.890 Other specified postprocedural states; Z88.0 Allergy status to penicillin
CPT/HCPCS: 36415; 80048; 85025; 85610; 92960; 93005; J2250; J3010; J7030; 99152; J0282